=== PATIENT | male | born 1935 | race Caucasian/White ===

== ENCOUNTER 2022-04-03 09:38 | Inpatient (IN) | payer MEDICARE, OTHER ==
[2022-04-03] MEDS ORDERED: SODIUM CHLORIDE 0.9% 1,000 ML IV STA (09:59)
[2022-04-03] MEDS ORDERED: SODIUM CHLORIDE 0.9% 500 ML 500 ML IV STA (09:59)
[2022-04-03] MEDS ORDERED: DILTIAZEM DRIP BOLUS FROM BAG 1 MG SOLN IV ONE (09:59)
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
[2022-04-03] MEDS: DILTIAZEM 125 MG in SODIUM CHLORIDE 0.9% 100 ML IV SCH (10:12)
[2022-04-03 10:30] LABS: Basophils % (A) 1 %; Eosinophils % (A) 1 %; HCT 40.7 % (39.0-53.0); HGB 13.2 gm/dL (13.0-17.5); Lymphocytes # (A) 0.7 k/uL (1.0-4.8); Lymphocytes % (A) 9 %; MCH 30.8 pg (25.0-35.0); MCHC 32.4 g/dL (31.0-37.0); MCV 95.1 fL (80.0-100.0); Mean Platelet Volume 7.9; Monocytes # (A) 1.1 k/uL (0-1.0); Monocytes % (A) 13 %; Neutrophils # (A) 5.9 k/uL (1.3-7.7); Neutrophils % (A) 74 %; Platelet Count 192 k/uL (150-450); RBC 4.29 m/uL (4.30-5.90); RDW 14.2 % (11.5-15.5); WBC 7.9 k/uL (3.8-10.6)
[2022-04-03 10:38] LABS: ALT 16 U/L (4-49); AST 34 U/L (17-59); African American GFR (CKD) 47 (>60 ml/min/1.73 sqM); Albumin 3.7 g/dL (3.5-5.0); Alkaline Phosphatase 83 U/L (38-126); Anion Gap 10 mmol/L; Blood Urea Nitrogen 23 mg/dL (9-20); Calcium 8.4 mg/dL (8.4-10.2); Carbon Dioxide 24 mmol/L (22-30); Chloride 100 mmol/L (98-107); Creatine Kinase 738 U/L (55-170); Glucose 113 mg/dL (74-99); Lipase 99 U/L (23-300); Magnesium 1.7 mg/dL (1.6-2.3); Non-African American GFR(CKD) 41 (>60 ml/min/1.73 sqM); Potassium 3.9 mmol/L (3.5-5.1); Sodium 134 mmol/L (137-145); Total Protein 7.6 g/dL (6.3-8.2)
[2022-04-03 10:42] LABS: INR 1.3 (<1.2); Prothrombin Time 13.6 sec (9.0-12.0)
[2022-04-03 11:35] LABS: T4, Free (Free Thyroxine) 0.98 ng/dL (0.78-2.19)
--- NOTE | 2022-04-03 11:43 | XR ---
EXAMINATION TYPE: XR chest 2V DATE OF EXAM: 04/03/2022 11:29 AM COMPARISON: None TECHNIQUE: XR chest 2V Frontal and lateral views of the chest. CLINICAL INDICATION:Male, 86 years old with history of Fever and weakness; FINDINGS: Lungs/Pleura: Low lung volumes are present. There is no evidence of pleural effusion, focal consolida tion, or pneumothorax. Pulmonary vascularity: Unremarkable. Heart/mediastinum: Cardiomediastinal silhouette is enlarged and stable. Musculoskeletal: No acute osseous pathology. IMPRESSION: Low lung volumes with a generalized hazy appearance which could represent atelectasis, pneumonia or p ulmonary edema.
[2022-04-03 11:57] LABS: Appearance,Urine Clear (Clear); Bacteria,Urine Rare /hpf; Bilirubin,Urine Negative (Negative); Blood,Urine Moderate (Negative); Color,Urine Yellow; Glucose,Urine (UA) Negative (Negative); Hyaline Casts,Urine 3 /lpf (0-2); Ketones,Urine 1+ (Negative); Leukocyte Esterase,Urine Negative (Negative); Mucus,Urine Rare /hpf; Nitrite,Urine Negative (Negative); Protein,Urine 2+ (Negative); RBC,Urine 1 /hpf (0-5); Urobilinogen,Urine <2.0 mg/dL (<2.0); WBC,Urine 3 /hpf (0-5)
[2022-04-03] MEDS ORDERED: cefTRIAXone IN SWFI 1,000 MG/10 ML SYRINGE IVP STA (12:25)
[2022-04-03] MEDS ORDERED: IPRATROPIUM-ALBUTEROL 3 ML NEB INHALATION PRN (13:17)
[2022-04-03] MEDS ORDERED: PNEUMONIA PROTOCOL UTILIZED 1 EACH MISC PO PRN (13:17)
[2022-04-03] MEDS ORDERED: AZITHROMYCIN 500 MG in SODIUM CHLORIDE 0.9% 250 ML IVPB STA (13:17)
[2022-04-03] MEDS: RIVAROXABAN 20 MG TAB PO SCH (17:22)
[2022-04-03] MEDS: ACETAMINOPHEN TAB 325 MG TAB PO PRN (17:23)
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
[2022-04-04] MEDS: ACETAMINOPHEN TAB 325 MG TAB PO PRN (03:24)
[2022-04-04] MEDS: DILTIAZEM 125 MG in SODIUM CHLORIDE 0.9% 100 ML IV SCH (03:25)
[2022-04-04 08:32] LABS: HCT 38.5 % (39.0-53.0); HGB 12.9 gm/dL (13.0-17.5); MCH 32.6 pg (25.0-35.0); MCHC 33.4 g/dL (31.0-37.0); MCV 97.6 fL (80.0-100.0); Mean Platelet Volume 8.2; Platelet Count 173 k/uL (150-450); Poikilocytosis Slight; RBC 3.94 m/uL (4.30-5.90); RDW 14.7 % (11.5-15.5); WBC 6.3 k/uL (3.8-10.6)
[2022-04-04] MEDS ORDERED: TORSEMIDE 20 MG TAB PO SCH (09:00)
[2022-04-04] MEDS ORDERED: METOPROLOL SUCCINATE (ER) 25 MG TAB.ER.24H PO SCH (09:00)
[2022-04-04] MEDS: AZITHROMYCIN 500 MG TAB PO SCH (09:02)
[2022-04-04] MEDS: POTASSIUM CITRATE 10 MEQ TABLET.ER PO SCH (09:02)
[2022-04-04] MEDS: LOSARTAN 50 MG TAB PO SCH (09:03)
[2022-04-04] MEDS: METOPROLOL SUCCINATE (ER) 100 MG TAB.ER.24H PO SCH (09:08)
[2022-04-04 10:38] LABS: Eosinophils # (M) 0.13 k/uL (0-0.7); Lymphocytes # (M) 0.76 k/uL (1.0-4.8); Monocytes # (M) 0.95 k/uL (0-1.0); Neutrophils # (M) 4.47 k/uL (1.3-7.7); Neutrophils % (M) 71 %; Nucleated Red Blood Cells 0 /100 WBC (0-0); Total Cells Counted 100
--- NOTE | 2022-04-04 11:33 | P.CRDCN ---
History of Present Illness History of present illness: HISTORY OF PRESENT ILLNESS: This is a 86-year-old male with a past medical history significant for unspecified cardiomyopathy, permanent atrial fibrillation, hypertension, hyperlipidemia, and chronic lower extremity venous ulcers. Patient follows in the office with Dr. Varela. We have been asked to see the patient in consultation for Ron ronquillo with RVR. Patient examined at the bedside. Patient states he presented to the hospital with generalized weakness and feeling as though his balance was off. He reports falling at home but denies any syncopal episodes. The patient was found to be febrile upon admission. He denied any fever at home. He denies any cough. He denies shortness of breath. Denies chest pain or pressure. He denies any palpitations. Telemetry this morning reveals atrial fibrillation with a heart rate between 100-115. Patient is currently on a Cardizem drip at 5 mg an hour. * EKG reveals atrial fibrillation with RVR. Left axis deviation. * Chest xray low lung volumes with generalized hazy appearance which could represent atelectasis, pneumonia, or pulmonary edema * Laboratory data: WBC 6.3. Hemoglobin 12.9. Platelet count 173. Sodium 135. Potassium 4.0. B UN 28. Creatinine 1.81. ProBNP 2700. Troponin 0.031. * Current home cardiac medications include Demadex 20 mg daily, Xarelto 20 mg with supper, metoprolol succinate 75 mg daily, and losartan 100 mg daily * Most recent echocardiogram obtained in October 2021 reveal ejection fraction 35% with mild aortic regurgitation, mild mitral regurgitation, mild tricuspid regurgitation * Cardiac catheterization history: Unknown REVIEW OF SYSTEMS: At the time of my exam: CONSTITUTIONAL: Denies fever or chills. HEENT: Denies blurred vision, vision changes, or eye pain. Denies hemoptysis CARDIOVASCULAR: Denies chest pain. Denies orthopnea. Denies PND. Denies palpitations RESPIRATORY: Denies shortness of breath. GASTROINTESTINAL: Denies abdominal pain. Denies nausea or vomiting. HEMATOLOGIC: Denies bleeding disorders. GENITOURINARY: Denies any blood in urine. SKIN: Denies pruitis. Denies rash. PHYSICAL EXAM: VITAL SIGNS: Reviewed. GENERAL: Well-developed in no acute distress. HEENT: Head is normocephalic. Pupils are equal, round. Sclerae anicteric. Mucous membranes of the mouth are moist. Neck supple. No JVD or thyromegaly LUNGS: Respirations even and unlabored. Lungs diminished with a few bibasilar crackles. HEART: Tachycardic. Irregular rate and rhythm. S1 and S2 heard. ABDOMEN: Soft. Nondistended. Nontender. EXTREMITIES: Normal range of motion. No clubbing or cyanosis. Peripheral pulses intact. Bilateral lower extremity edema present with Osmany wraps. NEUROLOGIC: Awake and alert. Oriented x 3. ASSESSMENT: Generalized weakness with mechanical fall Fever Bilateral pneumonia Permanent atrial fibrillation with RVR, anticoagulated with Xarelto Cardiomyopathy, unspecified, ejection fraction 35% Chronic lower extremity venous ulcers COPD Acute kidney injury, baseline unknown PLAN: No need to repeat echocardiogram as patient had echocardiogram performed in the office in October 2021 revealing ejection fraction 35% Continue anticoagulation with Xarelto Continue additional cardiac medications Increase metoprolol succinate 100 mg daily for optimal blood pressure control Discontinue IV Cardizem secondary to cardiomyopathy Further recommendations pending patient's course Patient with worsening kidney function today compared to yesterday and concern of pneumonia. We will hold torsemide and monitor kidney function, volume status. Nurse practitioner note has been reviewed by physician. Signing provider agrees with the documented findings, assessment, and plan of care. Past Medical History Past Medical History: Atrial Fibrillation, Heart Failure, COPD, GERD/Reflux, Hypertension, Pneumonia, Vascular Disorder Additional Past Medical History / Comment(s): Recently seen by PCP on 04/02/22 for worsening cough, pt on antibiotic d/t tooth infection, venous insufficiency, bilateral leg lymphedema/wrapped spouse states past sores on bilateral feet but not at this time, History of Any Multi-Drug Resistant Organisms: None Reported Past Surgical History: Orthopedic Surgery Additional Past Surgical History / Comment(s): R elbow injury with surgery Past Anesthesia/Blood Transfusion Reactions: No Reported Reaction Past Psychological History: No Psychological Hx Reported Additional Psychological History / Comment(s): Pt resides with his spouse. He has a walker but does not use it. He is fairly independent. Smoking Status: Former smoker Past Alcohol Use History: Rare Additional Past Alcohol Use History / Comment(s): Pt started smoking in 4 and quit in 1981 Past Drug Use History: None Reported - Past Family History Father Family Medical History: Congestive Heart Failure (CHF) Additional Family Medical History / Comment(s): Father lived to be 88/89yrs old Mother Family Medical History: Cancer Additional Family Medical History / Comment(s): Leukemia Medications and Allergies Home Medications Medication Instructions Recorded Confirmed Type Amoxic-Pot Clav 875-125Mg 1 tab PO Q12HR 04/03/22 04/03/22 History [Augmentin 875-125] Ergocalciferol [Vitamin D2 (1250 1,250 mcg PO Q30D 04/03/22 04/03/22 History Mcg = 63148 Iu)] Losartan Potassium 100 mg PO DAILY 04/03/22 04/03/22 History Metoprolol Succinate (ER) [Toprol 75 mg PO DAILY 04/03/22 04/03/22 History Xl] Potassium Citrate [Potassium 10 meq PO DAILY 04/03/22 04/03/22 History Citrate ER] Rivaroxaban [Xarelto] 20 mg PO W/SUPPER 04/03/22 04/03/22 History Torsemide [Demadex] 20 mg PO DAILY 04/03/22 04/03/22 History Allergies Allergy/AdvReac Type Severity Reaction Status Date / Time No Known Allergies Allergy Verified 04/03/22 11:04 Physical Exam Vitals: Vital Signs Temp Pulse Pulse Resp BP BP Pulse Ox 04/04/22 08:00 98.3 F 104 H 20 134/84 96 04/04/22 05:17 98.8 F 04/04/22 04:00 99.7 F H 132 H 18 145/83 97 04/03/22 22:57 98.3 F 103 H 18 163/68 91 L 04/03/22 20:00 98.4 F 101 H 20 109/74 98 04/03/22 19:40 99 04/03/22 16:35 100.2 F H 117 H 20 174/98 93 L 04/03/22 15:54 117 H 20 96 04/03/22 15:39 102.8 F H 110 H 22 140/84 97 04/03/22 14:09 106 H 22 158/102 96 04/03/22 12:15 100.6 F H 102 H 18 177/87 97 Intake and Output 04/03/22 04/04/22 04/04/22 22:59 06:59 14:59 Intake Total 240 926.083 Output Total 550 Balance 240 376.083 Intake: Intake, IV Titration 686.083 Amount Diltiazem 125 mg In 86.083 Sodium Chloride 0.9% 100 ml @ 5 MG/HR 5 mls/hr IV .Q24H PRETE Rx#:[id number] Sodium Chloride 0.9% 1, 600 000 ml @ 50 mls/hr IV . Q20H STA Rx#:[id number] Oral 240 240 Output: Urine 550 Other: Voiding Method Urinal Urinal Results 04/04/22 07:14 04/04/22 07:14 CBC 04/04/22 Range/Units 07:14 WBC 6.3 (3.8-10.6) k/uL RBC 3.94 L (4.30-5.90) m/uL Hgb 12.9 L (13.0-17.5) gm/dL Hct 38.5 L (39.0-53.0) % Plt Count 173 (150-450) k/uL Comprehensive Metabolic Panel 04/04/22 Range/Units 07:14 Sodium 135 L (137-145) mmol/L Potassium 4.0 (3.5-5.1) mmol/L Chloride 104 (98-107) mmol/L Carbon Dioxide 23 (22-30) mmol/L BUN 28 H (9-20) mg/dL Creatinine 1.81 H (0.66-1.25) mg/dL Glucose 103 H (74-99) mg/dL Calcium 8.0 L (8.4-10.2) mg/dL Current Medications Generic Name Dose Route Start Last Admin Trade Name Freq PRN Reason Stop Dose Admin Acetaminophen 650 mg 04/03/22 16:25 04/04/22 03:24 Acetaminophen Tab 325 Mg Tab PO 650 mg Q6HR PRN Administration Fever and/ or Mild Pain Albuterol/Ipratropium 3 ml 04/03/22 13:17 Ipratropium-Albuterol 3 Ml Neb INHALATION RT-Q4H PRN shortness of breath Azithromycin 500 mg 04/04/22 09:00 04/04/22 09:02 Azithromycin 500 Mg Tab PO 04/05/22 09:01 500 mg DAILY PREET Administration Protocol Ergocalciferol 1,250 mcg 04/19/22 09:00 Ergocalciferol 1,250 Mcg (50,000 Iu) Capsule PO Q30D [facility] Diltiazem HCl 125 mg/ Sodium 125 mls @ 5 mls/hr 04/03/22 10:00 04/04/22 03:25 Chloride IV 5 mg/hr .Q24H PREET 5 mls/hr Administration 5 MG/HR Ceftriaxone Sodium 2 gm/ 50 mls @ 100 mls/hr 04/04/22 09:00 04/04/22 09:02 Sodium Chloride IVPB 04/07/22 09:29 100 mls/hr Q24HR PREET Administration Protocol Losartan Potassium 100 mg 04/04/22 09:00 04/04/22 09:03 Losartan 50 Mg Tab PO 100 mg DAILY PREET Administration Metoprolol Succinate 100 mg 04/04/22 09:00 04/04/22 09:08 Metoprolol Succinate (Er) 100 Mg Tab.Er.24h PO 100 mg DAILY PREET Administration Miscellaneous Information 1 each 04/03/22 13:17 Pneumonia Protocol Utilized 1 Each Misc PO ONCE PRN Per Protocol Potassium Citrate 10 meq 04/04/22 09:00 04/04/22 09:02 Potassium Citrate 10 Meq Tablet.Er PO 10 meq DAILY PREET Administration Rivaroxaban 20 mg 04/03/22 17:30 04/03/22 17:22 Rivaroxaban 20 Mg Tab PO 20 mg W/SUPPER PREET Administration Protocol Torsemide 20 mg 04/04/22 09:00 04/04/22 09:02 Torsemide 20 Mg Tab PO 20 mg DAILY PREET Administration Intake and Output 04/03/22 04/04/22 04/04/22 22:59 06:59 14:59 Intake Total 240 926.083 Output Total 550 Balance 240 376.083 Intake: Intake, IV Titration 686.083 Amount Diltiazem 125 mg In 86.083 Sodium Chloride 0.9% 100 ml @ 5 MG/HR 5 mls/hr IV .Q24H PREET Rx#:[id number] Sodium Chloride 0.9% 1, 600 000 ml @ 50 mls/hr IV . Q20H STA Rx#:[id number] Oral 240 240 Output: Urine 550 Other: Voiding Method Urinal Urinal 04/04/22 07:14 04/04/22 07:14
[2022-04-04] MEDS: RIVAROXABAN 20 MG TAB PO SCH (17:12)
[2022-04-05 08:16] LABS: Basophils % (A) 0 %; Eosinophils # (A) 0.1 k/uL (0-0.7); Eosinophils % (A) 1 %; HCT 39.2 % (39.0-53.0); HGB 12.4 gm/dL (13.0-17.5); Lymphocytes # (A) 0.9 k/uL (1.0-4.8); Lymphocytes % (A) 11 %; MCH 30.7 pg (25.0-35.0); MCHC 31.7 g/dL (31.0-37.0); MCV 96.8 fL (80.0-100.0); Mean Platelet Volume 8.7; Monocytes # (A) 0.9 k/uL (0-1.0); Monocytes % (A) 11 %; Neutrophils # (A) 5.7 k/uL (1.3-7.7); Neutrophils % (A) 74 %; Platelet Count 203 k/uL (150-450); RBC 4.06 m/uL (4.30-5.90); RDW 14.3 % (11.5-15.5); WBC 7.7 k/uL (3.8-10.6)
[2022-04-05 08:39] LABS: Potassium 4.1 mmol/L (3.5-5.1)
[2022-04-05] MEDS: METOPROLOL SUCCINATE (ER) 100 MG TAB.ER.24H PO SCH (09:20)
[2022-04-05] MEDS: LOSARTAN 50 MG TAB PO SCH (09:20)
[2022-04-05] MEDS: POTASSIUM CITRATE 10 MEQ TABLET.ER PO SCH (09:20)
[2022-04-05] MEDS: AZITHROMYCIN 500 MG TAB PO SCH (09:20)
--- NOTE | 2022-04-05 12:38 | P.PN ---
Subjective Progress Note Date: 04/05/22 HISTORY OF PRESENT ILLNESS: This is a 86-year-old male with a past medical history significant for unspecified cardiomyopathy, permanent atrial fibrillation, hypertension, hyperlipidemia, and chronic lower extremity venous ulcers. Patient follows in the office with Dr. Varela. We have been asked to see the patient in consultation for Ron ronquillo with RVR. Patient examined at the bedside. Patient states he presented to the hospital with generalized weakness and feeling as though his b alance was off. He reports falling at home but denies any syncopal episodes. The patient was found to be febrile upon admission. He denied any fever at home. He denies any cough. He denies shortness of breath. Denies chest pain or pressure. He denies any palpitations. Telemetry this morning reveals atrial fibrillation with a heart rate between 100-115. Patient is currently on a Cardizem drip at 5 mg an hour. * EKG reveals atrial fibrillation with RVR. Left axis deviation. * Chest xray low lung volumes with generalized hazy appearance which could represent atelectasis, pneumonia, or pulmonary edema * Laboratory data: WBC 6.3. Hemoglobin 12.9. Platelet count 173. Sodium 135. Potassium 4.0. B UN 28. Creatinine 1.81. ProBNP 2700. Troponin 0.031. * Current home cardiac medications include Demadex 20 mg daily, Xarelto 20 mg with supper, metoprolol succinate 75 mg daily, and losartan 100 mg daily * Most recent echocardiogram obtained in October 2021 reveal ejection fraction 35% with mild aortic regurgitation, mild mitral regurgitation, mild tricuspid regurgitation * Cardiac catheterization history: Unknown Patient examined this morning. Patient is sitting up in the chair. Patient denies chest pain or pressure. Currently denies shortness of breath. Telemetry reveals atrial fibrillation with a heart rate around 100-115. Patient's metoprolol succinate was increased yesterday to 100 mg daily. Patient's creatinine today is better at 1.51. BUN 30. Blood pressure 127/82. PHYSICAL EXAM: VITAL SIGNS: Reviewed. GENERAL: Well-developed in no acute distress. HEENT: Head is normocephalic. Pupils are equal, round. Sclerae anicteric. Mucous membranes of the mouth are moist. Neck supple. No JVD or thyromegaly LUNGS: Respirations even and unlabored. Lungs diminished with a few bibasilar crackles. HEART: Tachycardic. Irregular rate and rhythm. S1 and S2 heard. ABDOMEN: Soft. Nondistended. Nontender. EXTREMITIES: Normal range of motion. No clubbing or cyanosis. Peripheral pulses intact. Bilateral lower extremity edema present with Osmany wraps. NEUROLOGIC: Awake and alert. Oriented x 3. ASSESSMENT: Generalized weakness with mechanical fall Fever Bilateral pneumonia Permanent atrial fibrillation with RVR, anticoagulated with Xarelto Cardiomyopathy, unspecified, ejection fraction 35% Chronic lower extremity venous ulcers COPD Acute kidney injury, baseline unknown PLAN: Continue current cardiac medications Continue current dose of metoprolol. Continue telemetry monitoring. Anticipate heart rates will improve with resolution of pneumonia Continue to monitor kidney function. Torsemide on hold. Further recommendations pending patient course Nurse practitioner note has been reviewed by physician. Signing provider agrees with the documented findings, assessment, and plan of care. Objective - Vital Signs Vital signs: Vital Signs Temp 98.6 F 04/05/22 11:45 Pulse 81 04/05/22 11:45 Resp 21 04/05/22 11:45 BP 127/82 04/05/22 11:45 Pulse Ox 95 04/05/22 11:45 FiO2 Intake & Output 04/04/22 04/05/22 04/05/22 18:59 06:59 18:59 Intake Total 240 Output Total 200 500 100 Balance -200 -260 -100 Intake: Oral 240 Output: Urine 200 500 100 Other: Voiding Method Urinal Urinal - Labs CBC & Chem 7: 04/05/22 07:26 04/05/22 07:26 Labs: Abnormal Lab Results - Last 24 Hours (Table) 04/05/22 04/05/22 Range/Units 07:26 07:26 RBC 4.06 L (4.30-5.90) m/uL Hgb 12.4 L (13.0-17.5) gm/dL Lymphocytes # 0.9 L (1.0-4.8) k/uL BUN 30 H (9-20) mg/dL Creatinine 1.51 H (0.66-1.25) mg/dL Glucose 117 H (74-99) mg/dL Calcium 8.0 L (8.4-10.2) mg/dL Microbiology - Last 24 Hours (Table) 04/03/22 10:15 Blood Culture - Preliminary Blood No Growth after 48 hours 04/03/22 10:00 Blood Culture Gram Stain - Preliminary Blood 04/03/22 10:00 Blood Culture - Final Blood
[2022-04-05] MEDS: RIVAROXABAN 20 MG TAB PO SCH (16:25)
[2022-04-06] MEDS: POTASSIUM CITRATE 10 MEQ TABLET.ER PO SCH (09:37)
[2022-04-06] MEDS: ACETAMINOPHEN TAB 325 MG TAB PO PRN (09:37)
[2022-04-06] MEDS: METOPROLOL SUCCINATE (ER) 100 MG TAB.ER.24H PO SCH (09:39)
[2022-04-06] MEDS: LOSARTAN 50 MG TAB PO SCH (09:39)
[2022-04-06] MEDS ORDERED: DIGOXIN 250 MCG/ML 2 ML AMP IVP STA (11:39)
--- NOTE | 2022-04-06 11:39 | P.PN ---
Subjective HISTORY OF PRESENT ILLNESS: This is a 86-year-old male with a past medical history significant for unspecified cardiomyopathy, permanent atrial fibrillation, hypertension, hyperlipidemia, and chronic lower extremity venous ulcers. Patient follows in the office with Dr. Varela. We have been asked to see the patient in consultation for Ron ronquillo with RVR. Patient examined at the bedside. Patient states he presented to the hospital with generalized weakness and feeling as though his balance was off. He reports falling at home but denies any syncopal episodes. The patient was found to be febrile upon admission. He denied any fever at home. He denies any cough. He denies shortness of breath. Denies chest pain or pressure. He denies any palpitations. Telemetry this morning reveals atrial fibrillation with a heart rate between 100-115. Patient is currently on a Cardizem drip at 5 mg an hour. * EKG reveals atrial fibrillation with RVR. Left axis deviation. * Chest xray low lung volumes with generalized hazy appearance which could re present atelectasis, pneumonia, or pulmonary edema * Laboratory data: WBC 6.3. Hemoglobin 12.9. Platelet count 173. Sodium 135. Potassium 4.0. B UN 28. Creatinine 1.81. ProBNP 2700. Troponin 0.031. * Current home cardiac medications include Demadex 20 mg daily, Xarelto 20 mg with supper, metoprolol succinate 75 mg daily, and losartan 100 mg daily * Most recent echocardiogram obtained in October 2021 reveal ejection fraction 35% with mild aortic regurgitation, mild mitral regurgitation, mild tricuspid regurgitation * Cardiac catheterization history: Unknown Patient examined this morning. Patient is sitting up in the chair. Patient denies chest pain or pressure. Currently denies shortness of breath. Telemetry reveals atrial fibrillation with a heart rate around 100-115. Patient's metoprolol succinate was increased yesterday to 100 mg daily. Patient's creatinine today is better at 1.51. BUN 30. Blood pressure 127/82. 04/06 Patient seen and examined. Patient admits to feeling somewhat better however continued shortness breath. Creatinine mildly improved from 1.8 down to 1.5. Torsemide has been on hold. He has chronic lower extremity edema. Heart rates fairly consistently in the 110s and 120s. PHYSICAL EXAM: VITAL SIGNS: Reviewed. GENERAL: Well-developed in no acute distress. HEENT: Head is normocephalic. Pupils are equal, round. Sclerae anicteric. Mucous membranes of the mouth are moist. Neck supple. No JVD or thyromegaly LUNGS: Respirations even and unlabored. Lungs diminished with a few bibasilar crackles. HEART: Tachycardic. Irregular rate and rhythm. S1 and S2 heard. ABDOMEN: Soft. Nondistended. Nontender. EXTREMITIES: Normal range of motion. No clubbing or cyanosis. Peripheral pulses intact. Bilateral lower extremity edema present with Osmany wraps. NEUROLOGIC: Awake and alert. Oriented x 3. ASSESSMENT: Generalized weakness with mechanical fall Fever Bilateral pneumonia Permanent atrial fibrillation with RVR, anticoagulated with Xarelto Cardiomyopathy, unspecified, ejection fraction 35% Chronic lower extremity venous ulcers COPD Acute kidney injury, baseline unknown PLAN: Continue current cardiac medications Continue current dose of metoprolol. Continue telemetry monitoring. Heart rates likely exacerbated by pneumonia. Add digoxin however lower dose given kidney failure. Continue to monitor kidney function. Torsemide on hold. Further recommendations pending patient course Objective - Vital Signs Vital signs: Vital Signs Temp 98.1 F 04/06/22 11:25 Pulse 105 H 04/06/22 11:25 Resp 20 04/06/22 11:25 BP 109/67 04/06/22 11:25 Pulse Ox 94 L 04/06/22 11:25 FiO2 Intake & Output 04/05/22 04/06/22 04/06/22 18:59 06:59 18:59 Intake Total 680 180 Output Total 100 Balance -100 680 180 Intake: Oral 680 180 Output: Urine 100 Other: Voiding Method Urinal Urinal # Voids 1 1 # Bowel Movements 1 1 - Labs CBC & Chem 7: 04/05/22 07:26 04/05/22 07:26 Labs: Microbiology - Last 24 Hours (Table) 04/03/22 10:00 Blood Culture Gram Stain - Preliminary Blood 04/03/22 10:15 Blood Culture - Preliminary Blood No Growth after 48 hours 04/03/22 10:00 Blood Culture - Final Blood
[2022-04-06] MEDS ORDERED: DIGOXIN 250 MCG/ML 2 ML AMP ONE (12:23)
--- NOTE | 2022-04-06 15:33 | XR ---
EXAMINATION TYPE: XR chest 1V portable DATE OF EXAM: 04/06/2022 HISTORY: Shortness of breath. COMPARISON: 04/03/2022 TECHNIQUE: Single view of the chest is submitted. FINDINGS: Demonstrated are scattered senescent parenchymal change. There is no evidence for focal infiltrate. The heart is stable. Hilar and mediastinal structures are within normal limits. Degenerative changes are seen of the dorsal spine. IMPRESSION: 1. Chronic changes without evidence for acute pulmonary disease.
[2022-04-06] MEDS: RIVAROXABAN 20 MG TAB PO SCH (16:37)
[2022-04-07 07:35] LABS: Basophils % (A) 0 %; Eosinophils % (A) 0 %; HCT 40.7 % (39.0-53.0); HGB 12.9 gm/dL (13.0-17.5); Hypochromasia Slight; Lymphocytes # (A) 0.6 k/uL (1.0-4.8); Lymphocytes % (A) 5 %; MCHC 31.8 g/dL (31.0-37.0); MCV 97.5 fL (80.0-100.0); Mean Platelet Volume 8.9; Monocytes # (A) 0.9 k/uL (0-1.0); Monocytes % (A) 7 %; Neutrophils % (A) 86 %; Platelet Count 169 k/uL (150-450); RBC 4.17 m/uL (4.30-5.90); RDW 14.1 % (11.5-15.5); WBC 11.7 k/uL (3.8-10.6)
[2022-04-07 07:47] LABS: Calcium 8.2 mg/dL (8.4-10.2); Potassium 4.2 mmol/L (3.5-5.1)
[2022-04-07] MEDS: DIGOXIN 125 MCG TAB PO SCH (09:09)
[2022-04-07] MEDS: LOSARTAN 50 MG TAB PO SCH (09:09)
[2022-04-07] MEDS: METOPROLOL SUCCINATE (ER) 100 MG TAB.ER.24H PO SCH (09:09)
[2022-04-07] MEDS: POTASSIUM CITRATE 10 MEQ TABLET.ER PO SCH (09:09)
[2022-04-07] MEDS: ACETAMINOPHEN TAB 325 MG TAB PO PRN (12:11)
[2022-04-07] MEDS: SODIUM CHLORIDE 0.9% 250 ML IV SCH ×2 (16:37→17:26)
[2022-04-07] MEDS: TAMSULOSIN 0.4 MG CAP.ER.24H PO SCH (16:39)
[2022-04-07] MEDS: RIVAROXABAN 20 MG TAB PO SCH (16:39)
--- NOTE | 2022-04-07 17:32 | P.PN ---
Subjective HISTORY OF PRESENT ILLNESS: This is a 86-year-old male with a past medical history significant for unspecified cardiomyopathy, permanent atrial fibrillation, hypertension, hyperlipidemia, and chronic lower extremity venous ulcers. Patient follows in the office with Dr. Varela. We have been asked to see the patient in consultation for Ron ronquillo with RVR. Patient examined at the bedside. Patient states he presented to the hospital with generalized weakness and feeling as though his balance was off. He reports falling at home but denies any syncopal episodes. The patient was found to be febrile upon admission. He denied any fever at home. He denies any cough. He denies shortness of breath. Denies chest pain or pressure. He denies any palpitations. Telemetry this morning reveals atrial fibrillation with a heart rate between 100-115. Patient is currently on a Cardizem drip at 5 mg an hour. * EKG reveals atrial fibrillation with RVR. Left axis deviation. * Chest xray low lung volumes with generalized hazy appearance which could re present atelectasis, pneumonia, or pulmonary edema * Laboratory data: WBC 6.3. Hemoglobin 12.9. Platelet count 173. Sodium 135. Potassium 4.0. B UN 28. Creatinine 1.81. ProBNP 2700. Troponin 0.031. * Current home cardiac medications include Demadex 20 mg daily, Xarelto 20 mg with supper, metoprolol succinate 75 mg daily, and losartan 100 mg daily * Most recent echocardiogram obtained in October 2021 reveal ejection fraction 35% with mild aortic regurgitation, mild mitral regurgitation, mild tricuspid regurgitation * Cardiac catheterization history: Unknown Patient examined this morning. Patient is sitting up in the chair. Patient denies chest pain or pressure. Currently denies shortness of breath. Telemetry reveals atrial fibrillation with a heart rate around 100-115. Patient's metoprolol succinate was increased yesterday to 100 mg daily. Patient's creatinine today is better at 1.51. BUN 30. Blood pressure 127/82. 04/06 Patient seen and examined. Patient admits to feeling somewhat better however continued shortness breath. Creatinine mildly improved from 1.8 down to 1.5. Torsemide has been on hold. He has chronic lower extremity edema. Heart rates fairly consistently in the 110s and 120s. 04/07 Patient seen and examined. Patient underwent chest x-ray yesterday which showed no significant pulmonary process. He has had acute kidney injury and therefore diuretics have been discontinued. Digoxin was added with heart rates better controlled in the s. PHYSICAL EXAM: VITAL SIGNS: Reviewed. GENERAL: Well-developed in no acute distress. HEENT: Head is normocephalic. Pupils are equal, round. Sclerae anicteric. Mucous membranes of the mouth are moist. Neck supple. No JVD or thyromegaly LUNGS: Respirations even and unlabored. Lungs diminished with a few bibasilar crackles. HEART: Tachycardic. Irregular rate and rhythm. S1 and S2 heard. ABDOMEN: Soft. Nondistended. Nontender. EXTREMITIES: Normal range of motion. No clubbing or cyanosis. Peripheral pulses intact. Bilateral lower extremity edema present with Osmany wraps. NEUROLOGIC: Awake and alert. Oriented x 3. ASSESSMENT: Generalized weakness with mechanical fall Fever Bilateral pneumonia Permanent atrial fibrillation somewhat better controlled, anticoagulated with Xarelto Cardiomyopathy, unspecified, ejection fraction 35% Chronic lower extremity venous ulcers COPD Acute kidney injury, baseline unknown PLAN: Heart rates currently somewhat better controlled on digoxin. Continue to hold torsemide. Per nursing patient has had some urinary retention and may be the cause of increasing creatinine. Monitor creatinine and urine output. Continue supportive care. Further recommendations pending patient course Objective - Vital Signs Vital signs: Vital Signs Temp 98.2 F 04/07/22 16:00 Pulse 90 04/07/22 16:00 Resp 19 04/07/22 16:00 BP 111/68 04/07/22 16:00 Pulse Ox 94 L 04/07/22 16:00 FiO2 Intake & Output 04/06/22 04/07/22 04/07/22 18:59 06:59 18:59 Intake Total 478 Output Total 1200 Balance 478 -1200 Weight 117.934 kg Intake: Oral 478 Output: Urine 1200 Straight 1200 Other: Voiding Method Urinal Urinal Urinal # Voids 1 0 # Bowel Movements 1 - Labs CBC & Chem 7: 04/07/22 06:59 04/07/22 06:59 Labs: Abnormal Lab Results - Last 24 Hours (Table) 04/07/22 04/07/22 Range/Units 06:59 06:59 WBC 11.7 H (3.8-10.6) k/uL RBC 4.17 L (4.30-5.90) m/uL Hgb 12.9 L (13.0-17.5) gm/dL Neutrophils # 10.0 H (1.3-7.7) k/uL Lymphocytes # 0.6 L (1.0-4.8) k/uL BUN 46 H (9-20) mg/dL Creatinine 2.43 H (0.66-1.25) mg/dL Glucose 128 H (74-99) mg/dL Calcium 8.2 L (8.4-10.2) mg/dL Microbiology - Last 24 Hours (Table) 04/03/22 10:15 Blood Culture - Preliminary Blood No Growth after 96 hours
[2022-04-07] MEDS ORDERED: METOCLOPRAMIDE 5 MG TAB PO PRN (19:56)
[2022-04-08] MEDS: ACETAMINOPHEN TAB 325 MG TAB PO PRN ×2 (06:20→17:13)
[2022-04-08 08:32] LABS: Basophils % (A) 0 %; Eosinophils # (A) 0.1 k/uL (0-0.7); Eosinophils % (A) 2 %; HGB 12.2 gm/dL (13.0-17.5); Hypochromasia Slight; Lymphocytes # (A) 0.5 k/uL (1.0-4.8); Lymphocytes % (A) 6 %; MCH 30.7 pg (25.0-35.0); MCHC 31.2 g/dL (31.0-37.0); MCV 98.4 fL (80.0-100.0); Mean Platelet Volume 9.4; Monocytes # (A) 0.6 k/uL (0-1.0); Monocytes % (A) 7 %; Neutrophils # (A) 7.2 k/uL (1.3-7.7); Neutrophils % (A) 84 %; Platelet Count 182 k/uL (150-450); RBC 3.96 m/uL (4.30-5.90); RDW 14.2 % (11.5-15.5); WBC 8.5 k/uL (3.8-10.6)
[2022-04-08 08:40] LABS: Calcium 8.1 mg/dL (8.4-10.2); Potassium 3.9 mmol/L (3.5-5.1)
[2022-04-08] MEDS: SODIUM CHLORIDE 0.9% 250 ML IV SCH ×9 (09:14→21:43)
[2022-04-08] MEDS: DIGOXIN 125 MCG TAB PO SCH (09:17)
[2022-04-08] MEDS: POTASSIUM CITRATE 10 MEQ TABLET.ER PO SCH (09:17)
[2022-04-08] MEDS: METOPROLOL SUCCINATE (ER) 100 MG TAB.ER.24H PO SCH (09:17)
[2022-04-08] MEDS: TAMSULOSIN 0.4 MG CAP.ER.24H PO SCH (09:17)
[2022-04-08] MEDS: LOSARTAN 50 MG TAB PO SCH (09:17)
--- NOTE | 2022-04-08 10:21 | P.NPCON ---
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 He is known with hypertension at age 28, bilateral nephrolithiasis, chronic atrial fibrillation and cardiomyopathy ejection fraction 35% also known with chronic edema. Came in because of generalized weakness. Recently supposedly had visited his [facility] physician and was put on Augmentin. He came in with a temperature of 100.3 on arrival. Additionally he was on losartan and torsemide at home. No history of nausea vomiting no history of taking any nonsteroidals. No diarrhea. No dysuria frequency no pain suggestive of kidney stones In the hospital, on admission creatinine was 1.55, went up to 2.43 as of yesterday and is down to 2.1 on this morning he is given IV fluids yesterday. Past Medical History Past Medical History: Atrial Fibrillation, Heart Failure, COPD, GERD/Reflux, Hypertension, Pneumonia, Vascular Disorder Additional Past Medical History / Comment(s): Recently seen by PCP on 04/02/22 for worsening cough, pt on antibiotic d/t tooth infection, venous insufficiency, bilateral leg lymphedema/wrapped spouse states past sores on bilateral feet but not at this time, History of Any Multi-Drug Resistant Organisms: None Reported Past Surgical History: Orthopedic Surgery Additional Past Surgical History / Comment(s): R elbow injury with surgery Past Anesthesia/Blood Transfusion Reactions: No Reported Reaction Past Psychological History: No Psychological Hx Reported Additional Psychological History / Comment(s): Pt resides with his spouse. He has a walker but does not use it. He is fairly independent. Smoking Status: Former smoker Past Alcohol Use History: Rare Additional Past Alcohol Use History / Comment(s): Pt started smoking in 1952 and quit in 1981 Past Drug Use History: None Reported - Past Family History Father Family Medical History: Congestive Heart Failure (CHF) Additional Family Medical History / Comment(s): Father lived to be 88/89yrs old Mother Family Medical History: Cancer Additional Family Medical History / Comment(s): Leukemia Medications and Allergies Home Medications Medication Instructions Recorded Confirmed Type Amoxic-Pot Clav 875-125Mg 1 tab PO Q12HR 04/03/22 04/03/22 History [Augmentin 875-125] Ergocalciferol [Vitamin D2 (1250 1,250 mcg PO Q30D 04/03/22 04/03/22 History Mcg = 61560 Iu)] Losartan Potassium 100 mg PO DAILY 04/03/22 04/03/22 History Metoprolol Succinate (ER) [Toprol 75 mg PO DAILY 04/03/22 04/03/22 History Xl] Potassium Citrate [Potassium 10 meq PO DAILY 04/03/22 04/03/22 History Citrate ER] Rivaroxaban [Xarelto] 20 mg PO W/SUPPER 04/03/22 04/03/22 History Torsemide [Demadex] 20 mg PO DAILY 04/03/22 04/03/22 History Allergies Allergy/AdvReac Type Severity Reaction Status Date / Time No Known Allergies Allergy Verified 04/03/22 11:04 Physical Exam Vitals: Vital Signs Temp Pulse Resp BP Pulse Ox 04/08/22 08:00 92 19 04/08/22 07:55 98.1 F 92 19 100/64 96 04/08/22 03:56 98.5 F 89 18 97/64 98 04/08/22 02:00 76 20 04/08/22 00:00 98.9 F 76 20 111/70 96 04/07/22 20:00 97.9 F 70 18 105/66 96 04/07/22 16:00 98.2 F 90 19 111/68 94 L 04/07/22 14:00 74 19 04/07/22 12:00 98.6 F 74 19 112/72 95 Intake and Output 04/07/22 04/08/22 04/08/22 22:59 06:59 14:59 Intake Total 180 180 Output Total 1640 Balance 180 -1640 180 Intake: Oral 180 180 Output: Urine 1640 Straight 800 Other: Voiding Method Urinal Indwelling Catheter Indwelling Catheter # Voids 0 Weight 117.934 kg 95.5 kg Exams awake alert oriented HEENT exam no JVP neck is supple no facial asymmetry. Lungs are significant for bilateral occasional coarse crackles with less than optimal air entry bilaterally heart sounds unremarkable except for irregular no murmur rub gallop heard Abdomen soft nontender Extremity exam was moderate edema Neurologically awake alert oriented, generalized weakness Results - Lab Results Most recent lab results Calcium 8.1 mg/dL (8.4-10.2) L 04/08/22 07:42 Magnesium 1.7 mg/dL (1.6-2.3) 04/03/22 10:04 04/08/22 07:42 04/08/22 07:42 Assessment and Plan Assessment: Impression 1. Acute kidney injury secondary to likely volume depletion and prerenal state from diuretics improved creatinine with IV fluids given yesterday 2. Chronic kidney disease stage III nephrosclerosis Baseline creatinine 1.3 approximately December 2021. 1-2+ proteinuria noted on urinalysis. 3. History of COPD 4. History of cardiomyopathy, ejection fraction was 35% per cardiology, etiology unclear 5. History of nephrolithiasis. Recommendation 1. As creatinine is improving we will allow him to be gently hydrated orally. 2. Check urine protein to creatinine ratio. 3. Patient has a Lynn catheter therefore is no evidence of any outlet obstruction. Previously his ultrasound showed normal-sized kidneys in the office. 4. Check orthostatic changes and if it is positive we will give him gentle hydration intravenously. 5. Hold diuretics for right now 6. Monitor labs tomorrow per his schedule this consultation and will continue to follow closely
--- NOTE | 2022-04-08 14:00 | P.PN ---
Subjective HISTORY OF PRESENT ILLNESS: This is a 86-year-old male with a past medical history significant for unspecified cardiomyopathy, permanent atrial fibrillation, hypertension, hyperlipidemia, and chronic lower extremity venous ulcers. Patient follows in the office with Dr. Varela. We have been asked to see the patient in consultation for Ron ronquillo with RVR. Patient examined at the bedside. Patient states he presented to the hospital with generalized weakness and feeling as though his balance was off. He reports falling at home but denies any syncopal episodes. The patient was found to be febrile upon admission. He denied any fever at home. He denies any cough. He denies shortness of breath. Denies chest pain or pressure. He denies any palpitations. Telemetry this morning reveals atrial fibrillation with a heart rate between 100-115. Patient is currently on a Cardizem drip at 5 mg an hour. * EKG reveals atrial fibrillation with RVR. Left axis deviation. * Chest xray low lung volumes with generalized hazy appearance which could re present atelectasis, pneumonia, or pulmonary edema * Laboratory data: WBC 6.3. Hemoglobin 12.9. Platelet count 173. Sodium 135. Potassium 4.0. B UN 28. Creatinine 1.81. ProBNP 2700. Troponin 0.031. * Current home cardiac medications include Demadex 20 mg daily, Xarelto 20 mg with supper, metoprolol succinate 75 mg daily, and losartan 100 mg daily * Most recent echocardiogram obtained in October 2021 reveal ejection fraction 35% with mild aortic regurgitation, mild mitral regurgitation, mild tricuspid regurgitation * Cardiac catheterization history: Unknown Patient examined this morning. Patient is sitting up in the chair. Patient denies chest pain or pressure. Currently denies shortness of breath. Telemetry reveals atrial fibrillation with a heart rate around 100-115. Patient's metoprolol succinate was increased yesterday to 100 mg daily. Patient's creatinine today is better at 1.51. BUN 30. Blood pressure 127/82. 04/06 Patient seen and examined. Patient admits to feeling somewhat better however continued shortness breath. Creatinine mildly improved from 1.8 down to 1.5. Torsemide has been on hold. He has chronic lower extremity edema. Heart rates fairly consistently in the 110s and 120s. 04/07 Patient seen and examined. Patient underwent chest x-ray yesterday which showed no significant pulmonary process. He has had acute kidney injury and therefore diuretics have been discontinued. Digoxin was added with heart rates better controlled in the . 04/08 Patient seen and examined. Having hiccups today. Denies any chest pain or pressure. Still mild dyspnea. Still very weak and being assessed for possible rehab. Creatinine mildly improving to 2.1 today. Seen by nephrology and diuretics have been held with gentle IV fluids given yesterday. PHYSICAL EXAM: VITAL SIGNS: Reviewed. GENERAL: Well-developed in no acute distress. HEENT: Head is normocephalic. Pupils are equal, round. Sclerae anicteric. Mucous membranes of the mouth are moist. Neck supple. No JVD or thyromegaly LUNGS: Respirations even and unlabored. Lungs diminished with a few bibasilar crackles. HEART: Tachycardic. Irregular rate and rhythm. S1 and S2 heard. ABDOMEN: Soft. Nondistended. Nontender. EXTREMITIES: Normal range of motion. No clubbing or cyanosis. Peripheral pulses intact. Bilateral lower extremity edema present with Osmany wraps. NEUROLOGIC: Awake and alert. Oriented x 3. ASSESSMENT: Generalized weakness with mechanical fall Fever Bilateral pneumonia Permanent atrial fibrillation somewhat better controlled, anticoagulated with Xarelto Cardiomyopathy, unspecified, ejection fraction 35% Chronic lower extremity venous ulcers COPD Acute kidney injury, baseline unknown PLAN: Continue with digoxin for better rate control Continue to hold diuretics and monitor knee function. Creatinine mildly improved with IV fluids yesterday. May be component of urinary retention for acute kidney injury. Patient very debilitated and undergoing workup for rehab. Continue supportive care with very slow progression. Objective - Vital Signs Vital signs: Vital Signs Temp 98.1 F 04/08/22 12:00 Pulse 77 04/08/22 12:00 Resp 19 04/08/22 12:00 BP 106/57 04/08/22 12:00 Pulse Ox 98 04/08/22 12:00 FiO2 Intake & Output 04/07/22 04/08/22 04/08/22 18:59 06:59 18:59 Intake Total 420 180 Output Total 1640 Balance 420 -1640 180 Weight 117.934 kg 95.5 kg Intake: Oral 420 180 Output: Urine 1640 Straight 800 Other: Voiding Method Urinal Indwelling Catheter Indwelling Catheter # Voids 0 - Labs CBC & Chem 7: 04/08/22 07:42 04/08/22 07:42 Labs: Abnormal Lab Results - Last 24 Hours (Table) 04/08/22 04/08/22 Range/Units 07:42 07:42 RBC 3.96 L (4.30-5.90) m/uL Hgb 12.2 L (13.0-17.5) gm/dL Lymphocytes # 0.5 L (1.0-4.8) k/uL BUN 54 H (9-20) mg/dL Creatinine 2.11 H (0.66-1.25) mg/dL Glucose 124 H (74-99) mg/dL Calcium 8.1 L (8.4-10.2) mg/dL Microbiology - Last 24 Hours (Table) 04/03/22 10:15 Blood Culture - Preliminary Blood No Growth after 120 hours
[2022-04-08 16:36] LABS: Glucose,Whole Blood 130 mg/dL (70-110)
[2022-04-08] MEDS: RIVAROXABAN 20 MG TAB PO SCH (17:13)
[2022-04-08 17:22] LABS: Creatinine,Urine Random 212.3 mg/dL; Protein/Creatinine Ratio,Urine 0.151
[2022-04-08] MEDS ORDERED: HYDROcodone/APAP 5-325MG 1 EACH TAB PO PRN (18:56)
--- NOTE | 2022-04-09 00:54 | P.PN ---
Subjective Progress Note Date: 04/04/22 Patient is a 86-year-old male with a known history of paroxysmal atrial fibrillation on anticoagulation with xarelto, COPD, GERD, hypertension and previous history of smoking and also chronic lymphedema of the legs bilaterally presents to ER with complaints of generalized weakness. Patient is also having shortness of breath getting worse for the past 2 days. No complaints of chest pain. Patient was hypoxic with pulse ox 88% on room air on admission. Patient was also febrile and tachycardic on admission. T-max went up to 102.8. Denied any nausea or vomiting. No diarrhea. No headache or dizziness or lightheadedness. Patient also having worsening leg swelling. Chest x-ray showed low lung volumes and generalized hazy appearance which could represent atelectasis., Pneumonia or pulmonary edema. EKG showed atrial fibrillation with rapid ventricular rate Laboratory data showed WBC 7.9 hemoglobin 13.2 and platelets 192 INR 1.3, sodium 134 potassium 3.9, chloride 100 BUN 23 and creatinine 1.55 CKs 738. Liver is not elevated. ProBNP 2700 troponin 1 negative., TSH 0.16 and free T4 within normal limits at 0.98 Urinalysis showed 2+ protein 1+ ketones and moderate blood. Cordarone was pre sent not infected. 04/04/2022 Patient is currently lying in bed. Awake alert and oriented and feeling better today. Patient was febrile overnight. Continued on IV antibiotics. Heart rate is better controlled and also on Cardizem drip. Cardiology is on board. Continue with torsemide. Leg swelling is still present and denied any nausea vomiting abdominal pain or diarrhea. Laboratory test showed WBC 6.3 hemoglobin 12.9 and platelets 173 Sodium 134 potassium 4.0 chloride 104 bicarb is 23 BUN 28 and creatinine 1.81 and calcium 8.0 Current medications reviewed. Objective - Vital Signs Vital signs: Vital Signs Temp 98.9 F 04/04/22 20:00 Pulse 104 H 04/04/22 20:00 Resp 18 04/04/22 20:00 BP 161/81 04/04/22 20:00 Pulse Ox 93 L 04/04/22 20:00 FiO2 Intake & Output 04/04/22 04/04/22 04/05/22 06:59 18:59 06:59 Intake Total 1166.083 240 Output Total 550 200 175 Balance 616.083 -200 65 Intake: Intake, IV Titration 686.083 Amount Diltiazem 125 mg In 86.083 Sodium Chloride 0.9% 100 ml @ 5 MG/HR 5 mls/hr IV .Q24H PREET Rx#:[id number] Sodium Chloride 0.9% 1, 600 000 ml @ 50 mls/hr IV . Q20H STA Rx#:[id number] Oral 480 240 Output: Urine 550 200 175 Other: Voiding Method Urinal - Exam PHYSICAL EXAMINATION: Patient is lying in the bed comfortably, no acute distress, awake alert and oriented. But weak.. HEENT: Normocephalic. Neck is supple. Pupils reactive. Nostrils clear. Oral cavity is moist. Neck reveals no JVD, carotid bruits, or thyromegaly. CHEST EXAMINATION: Trachea is central. Symmetrical expansion. Bibasilar diminished sounds and no wheeze. CARDIAC: Normal S1, S2 with no gallops. No murmurs ABDOMEN: Soft. Bowel sounds normal. No organomegaly. No abdominal bruits. Extremities: 2+ bilateral pedal edema. No clubbing or cyanosis Neurologically awake, alert, oriented x3 with well-coordinated movements. No brothers focal deficits noted Skin: No rash or skin lesions. Psychiatric: Coperative. Nonsuicidal Musculoskeletal: No joint swelling or deformity. Normal range of motion while in bed.. - Labs CBC & Chem 7: 04/08/22 07:42 04/08/22 07:42 Labs: Abnormal Lab Results - Last 24 Hours (Table) 04/04/22 04/04/22 Range/Units 07:14 07:14 RBC 3.94 L (4.30-5.90) m/uL Hgb 12.9 L (13.0-17.5) gm/dL Hct 38.5 L (39.0-53.0) % Lymphocytes # (Manual) 0.76 L (1.0-4.8) k/uL Sodium 135 L (137-145) mmol/L BUN 28 H (9-20) mg/dL Creatinine 1.81 H (0.66-1.25) mg/dL Glucose 103 H (74-99) mg/dL Calcium 8.0 L (8.4-10.2) mg/dL Microbiology - Last 24 Hours (Table) 08/16/22 10:15 Blood Culture - Preliminary Blood No Growth after 24 hours 04/03/22 10:00 Blood Culture - Preliminary Blood No Growth after 24 hours Assessment and Plan Assessment: Acute hypoxic respiratory failure secondary to pneumonia and CHF Paroxysmal atrial fibrillation with rapid ventricular rate. On anticoagulant with xarelto home Bilateral pneumonia. Likely community-acquired sepsis secondary to pneumonia Acute CHF likely precipitated by rapid ventricular rate. EF not known. Obesity with BMI 39.5 COPD not in exacerbation GERD Hypertension Presents to smoking DVT prophylaxis with patient is already on xarelto Plan: Patient will be continued on gentle IV hydration and monitor blood pressure closely. Continue with antibiotics in the form of ceftriaxone and azithromycin. elevated pro-calcitonin level. Follow-up culture reports Patient was on Cardizem drip and anticoagulation with xarelto. Cardiology was consulted for evaluation. Continue with torsemide 20 mg daily. Continue with home medications and oxygen supplementation. Tylenol when necessary for fever. Follow up closely. Discussed with his at bedside in detail. Time with Patient: Greater than 30
--- NOTE | 2022-04-09 00:57 | P.PN ---
Subjective Progress Note Date: 04/05/22 Patient is a 86-year-old male with a known history of paroxysmal atrial fibrillation on anticoagulation with xarelto, COPD, GERD, hypertension and previous history of smoking and also chronic lymphedema of the legs bilaterally presents to ER with complaints of generalized weakness. Patient is also having shortness of breath getting worse for the past 2 days. No complaints of chest pain. Patient was hypoxic with pulse ox 88% on room air on admission. Patient was also febrile and tachycardic on admission. T-max went up to 102.8. Denied any nausea or vomiting. No diarrhea. No headache or dizziness or lightheadedness. Patient also having worsening leg swelling. Chest x-ray showed low lung volumes and generalized hazy appearance which could represent atelectasis., Pneumonia or pulmonary edema. EKG showed atrial fibrillation with rapid ventricular rate Laboratory data showed WBC 7.9 hemoglobin 13.2 and platelets 192 INR 1.3, sodium 134 potassium 3.9, chloride 100 BUN 23 and creatinine 1.55 CKs 738. Liver is not elevated. ProBNP 2700 troponin 1 negative., TSH 0.16 and free T4 within normal limits at 0.98 Urinalysis showed 2+ protein 1+ ketones and moderate blood. Cordarone was pre sent not infected. 04/04/2022 Patient is currently lying in bed. Awake alert and oriented and feeling better today. Patient was febrile overnight. Continued on IV antibiotics. Heart rate is better controlled and also on Cardizem drip. Cardiology is on board. Continue with torsemide. Leg swelling is still present and denied any nausea vomiting abdominal pain or diarrhea. Laboratory test showed WBC 6.3 hemoglobin 12.9 and platelets 173 Sodium 134 potassium 4.0 chloride 104 bicarb is 23 BUN 28 and creatinine 1.81 and calcium 8.0 04/05/2022 Patient is currently sitting in the scale comfortably. Awake alert and oriented x3. Denies any chest pain or shortness of breath. Still having bilateral leg swelling. Also remains in atrial fibrillation with rapid regular rate with heart rate abov e 100. Metoprolol dose increased to 100 mg daily. Patient is also on torsemide. Laboratory data showed WBC 7.7 hemoglobin 12.4 and platelets 203 BUN 30 and creatinine 1.51. Patient is also on antibiotics in the form of ceftriaxone and azithromycin. Cardiology is on board. Torsemide is on hold. Current medications reviewed. Objective - Vital Signs Vital signs: Vital Signs Temp 97.9 F 04/05/22 15:49 Pulse 95 04/05/22 15:49 Resp 18 04/05/22 15:49 BP 133/79 04/05/22 15:49 Pulse Ox 92 L 04/05/22 15:49 FiO2 Intake & Output 04/04/22 04/05/22 04/05/22 18:59 06:59 18:59 Intake Total 240 Output Total 200 500 100 Balance -200 -260 -100 Intake: Oral 240 Output: Urine 200 500 100 Other: Voiding Method Urinal Urinal # Bowel Movements 1 - Exam PHYSICAL EXAMINATION: Patient is lying in the bed comfortably, no acute distress, awake alert and oriented. But weak.. HEENT: Normocephalic. Neck is supple. Pupils reactive. Nostrils clear. Oral cavity is moist. Neck reveals no JVD, carotid bruits, or thyromegaly. CHEST EXAMINATION: Trachea is central. Symmetrical expansion. Bibasilar diminished sounds and no wheeze. CARDIAC: Normal S1, S2 with no gallops. No murmurs ABDOMEN: Soft. Bowel sounds normal. No organomegaly. No abdominal bruits. Extremities: 2+ bilateral pedal edema. No clubbing or cyanosis Neurologically awake, alert, oriented x3 with well-coordinated movements. No brothers focal deficits noted Skin: No rash or skin lesions. Psychiatric: Coperative. Nonsuicidal Musculoskeletal: No joint swelling or deformity. Normal range of motion while in bed.. - Labs CBC & Chem 7: 04/08/22 07:42 04/08/22 07:42 Labs: Abnormal Lab Results - Last 24 Hours (Table) 04/05/22 04/05/22 Range/Units 07:26 07:26 RBC 4.06 L (4.30-5.90) m/uL Hgb 12.4 L (13.0-17.5) gm/dL Lymphocytes # 0.9 L (1.0-4.8) k/uL BUN 30 H (9-20) mg/dL Creatinine 1.51 H (0.66-1.25) mg/dL Glucose 117 H (74-99) mg/dL Calcium 8.0 L (8.4-10.2) mg/dL Microbiology - Last 24 Hours (Table) 04/03/22 10:00 Blood Culture Gram Stain - Preliminary Blood 04/03/22 10:15 Blood Culture - Preliminary Blood No Growth after 48 hours 04/03/22 10:00 Blood Culture - Final Blood Assessment and Plan Assessment: Acute hypoxic respiratory failure secondary to pneumonia and CHF Paroxysmal atrial fibrillation with rapid ventricular rate. On anticoagulant with xarelto home Bilateral pneumonia. Likely community-acquired sepsis secondary to pneumonia Acute CHF likely precipitated by rapid ventricular rate. EF not known. Obesity with BMI 39.5 COPD not in exacerbation GERD Hypertension Presents to smoking DVT prophylaxis with patient is already on xarelto Plan: Patient will be continued on gentle IV hydration and monitor blood pressure closely. Continue with antibiotics in the form of ceftriaxone and azithromycin. elevated pro-calcitonin level. Follow-up culture reports Patient was on Cardizem drip . Started on metoprolol and continue anticoagulation with xarelto. Cardiology is on board. torsemide 20 mg daily on hold. Continue with home medications and oxygen supplementation. Tylenol when necessary for fever. Follow up closely. Discussed with his at bedside in detail. Time with Patient: Greater than 30
--- NOTE | 2022-04-09 00:59 | P.PN ---
Subjective Progress Note Date: 04/06/22 Patient is a 86-year-old male with a known history of paroxysmal atrial fibrillation on anticoagulation with xarelto, COPD, GERD, hypertension and previous history of smoking and also chronic lymphedema of the legs bilaterally presents to ER with complaints of generalized weakness. Patient is also having shortness of breath getting worse for the past 2 days. No complaints of chest pain. Patient was hypoxic with pulse ox 88% on room air on admission. Patient was also febrile and tachycardic on admission. T-max went up to 102.8. Denied any nausea or vomiting. No diarrhea. No headache or dizziness or lightheadedness. Patient also having worsening leg swelling. Chest x-ray showed low lung volumes and generalized hazy appearance which could represent atelectasis., Pneumonia or pulmonary edema. EKG showed atrial fibrillation with rapid ventricular rate Laboratory data showed WBC 7.9 hemoglobin 13.2 and platelets 192 INR 1.3, sodium 134 potassium 3.9, chloride 100 BUN 23 and creatinine 1.55 CKs 738. Liver is not elevated. ProBNP 2700 troponin 1 negative., TSH 0.16 and free T4 within normal limits at 0.98 Urinalysis showed 2+ protein 1+ ketones and moderate blood. Cordarone was pre sent not infected. 04/04/2022 Patient is currently lying in bed. Awake alert and oriented and feeling better today. Patient was febrile overnight. Continued on IV antibiotics. Heart rate is better controlled and also on Cardizem drip. Cardiology is on board. Continue with torsemide. Leg swelling is still present and denied any nausea vomiting abdominal pain or diarrhea. Laboratory test showed WBC 6.3 hemoglobin 12.9 and platelets 173 Sodium 134 potassium 4.0 chloride 104 bicarb is 23 BUN 28 and creatinine 1.81 and calcium 8.0 04/05/2022 Patient is currently sitting in the scale comfortably. Awake alert and oriented x3. Denies any chest pain or shortness of breath. Still having bilateral leg swelling. Also remains in atrial fibrillation with rapid regular rate with heart rate abov e 100. Metoprolol dose increased to 100 mg daily. Patient is also on torsemide. Laboratory data showed WBC 7.7 hemoglobin 12.4 and platelets 203 BUN 30 and creatinine 1.51. Patient is also on antibiotics in the form of ceftriaxone and azithromycin. Cardiology is on board. Torsemide is on hold. 04/06/2022 Patient is currently lying in the bed. Awake alert and oriented x3. Breathing status is better. No complaints of chest pain or shortness of breath. Bilateral lower extremities are Osmany wrapped. Heart rate is better controlled. Continued on metoprolol. Digoxin was added. Follow-up renal function. Torsemide is on hold. Cardiology is following. Current medications reviewed. Objective - Vital Signs Vital signs: Vital Signs Temp 98.3 F 04/06/22 16:00 Pulse 55 L 04/06/22 16:00 Resp 18 04/06/22 16:00 BP 145/94 04/06/22 16:00 Pulse Ox 93 L 04/06/22 16:00 FiO2 Intake & Output 04/06/22 04/06/22 04/07/22 06:59 18:59 06:59 Intake Total 680 478 Balance 680 478 Intake: Oral 680 478 Other: Voiding Method Urinal # Voids 1 1 # Bowel Movements 1 1 - Exam PHYSICAL EXAMINATION: Patient is lying in the bed comfortably, no acute distress, awake alert and oriented. But weak.. HEENT: Normocephalic. Neck is supple. Pupils reactive. Nostrils clear. Oral cavity is moist. Neck reveals no JVD, carotid bruits, or thyromegaly. CHEST EXAMINATION: Trachea is central. Symmetrical expansion. Bibasilar diminished sounds and no wheeze. CARDIAC: Normal S1, S2 with no gallops. No murmurs ABDOMEN: Soft. Bowel sounds normal. No organomegaly. No abdominal bruits. Extremities: 2+ bilateral pedal edema. No clubbing or cyanosis Neurologically awake, alert, oriented x3 with well-coordinated movements. No brothers focal deficits noted Skin: No rash or skin lesions. Psychiatric: Coperative. Nonsuicidal Musculoskeletal: No joint swelling or deformity. Normal range of motion while in bed.. - Labs CBC & Chem 7: 04/08/22 07:42 04/08/22 07:42 Labs: Microbiology - Last 24 Hours (Table) 04/03/22 10:15 Blood Culture - Preliminary Blood No Growth after 72 hours 04/03/22 10:00 Blood Culture Gram Stain - Final Blood Blood Culture - Final Bacillus species Not Anthracis Assessment and Plan Assessment: Acute hypoxic respiratory failure secondary to pneumonia and CHF Paroxysmal atrial fibrillation with rapid ventricular rate. On anticoagulant with xarelto home Bilateral pneumonia. Likely community-acquired sepsis secondary to pneumonia Acute CHF likely precipitated by rapid ventricular rate. EF 35%. Obesity with BMI 39.5 COPD not in exacerbation GERD Hypertension Presents to smoking DVT prophylaxis with patient is already on xarelto Plan: Patient will be continued on gentle IV hydration and monitor blood pressure closely. Continue with antibiotics in the form of ceftriaxone and azithromycin. elevated pro-calcitonin level. Follow-up culture reports Patient was on Cardizem drip . Started on metoprolol and continue anticoagulation with xarelto. added dizoxin, Cardiology is on board. torsemide 20 mg daily on hold due to renal function. Continue with home medications and oxygen supplementation. Tylenol when necessary for fever. Follow up closely. Discussed with his at bedside in detail. Time with Patient: Greater than 30
--- NOTE | 2022-04-09 01:01 | P.PN ---
Subjective Progress Note Date: 04/07/22 Patient is a 86-year-old male with a known history of paroxysmal atrial fibrillation on anticoagulation with xarelto, COPD, GERD, hypertension and previous history of smoking and also chronic lymphedema of the legs bilaterally presents to ER with complaints of generalized weakness. Patient is also having shortness of breath getting worse for the past 2 days. No complaints of chest pain. Patient was hypoxic with pulse ox 88% on room air on admission. Patient was also febrile and tachycardic on admission. T-max went up to 102.8. Denied any nausea or vomiting. No diarrhea. No headache or dizziness or lightheadedness. Patient also having worsening leg swelling. Chest x-ray showed low lung volumes and generalized hazy appearance which could represent atelectasis., Pneumonia or pulmonary edema. EKG showed atrial fibrillation with rapid ventricular rate Laboratory data showed WBC 7.9 hemoglobin 13.2 and platelets 192 INR 1.3, sodium 134 potassium 3.9, chloride 100 BUN 23 and creatinine 1.55 CKs 738. Liver is not elevated. ProBNP 2700 troponin 1 negative., TSH 0.16 and free T4 within normal limits at 0.98 Urinalysis showed 2+ protein 1+ ketones and moderate blood. Cordarone was pre sent not infected. 04/04/2022 Patient is currently lying in bed. Awake alert and oriented and feeling better today. Patient was febrile overnight. Continued on IV antibiotics. Heart rate is better controlled and also on Cardizem drip. Cardiology is on board. Continue with torsemide. Leg swelling is still present and denied any nausea vomiting abdominal pain or diarrhea. Laboratory test showed WBC 6.3 hemoglobin 12.9 and platelets 173 Sodium 134 potassium 4.0 chloride 104 bicarb is 23 BUN 28 and creatinine 1.81 and calcium 8.0 04/05/2022 Patient is currently sitting in the scale comfortably. Awake alert and oriented x3. Denies any chest pain or shortness of breath. Still having bilateral leg swelling. Also remains in atrial fibrillation with rapid regular rate with heart rate abov e 100. Metoprolol dose increased to 100 mg daily. Patient is also on torsemide. Laboratory data showed WBC 7.7 hemoglobin 12.4 and platelets 203 BUN 30 and creatinine 1.51. Patient is also on antibiotics in the form of ceftriaxone and azithromycin. Cardiology is on board. Torsemide is on hold. 04/06/2022 Patient is currently lying in the bed. Awake alert and oriented x3. Breathing status is better. No complaints of chest pain or shortness of breath. Bilateral lower extremities are Osmany wrapped. Heart rate is better controlled. Continued on metoprolol. Digoxin was added. Follow-up renal function. Torsemide is on hold. Cardiology is following. 04/07/2022 Patient is resting in the bed comfortably. No complaints of chest pain or shortness of breath. Repeat chest x-ray yesterday showed chronic changes with no evidence for acute pulmonary disease. Blood cultures grew Bacillus species. Not anthresis. Heart rate is better controlled. Currently on metoprolol and digoxin. Due to worsening renal function nephrology will be consulted. Current medications reviewed. Objective - Vital Signs Vital signs: Vital Signs Temp 97.9 F 04/07/22 20:00 Pulse 70 04/07/22 20:00 Resp 18 04/07/22 20:00 BP 105/66 04/07/22 20:00 Pulse Ox 96 04/07/22 20:00 FiO2 Intake & Output 04/07/22 04/07/22 04/08/22 06:59 18:59 06:59 Intake Total 420 Output Total 1200 Balance -1200 420 Weight 117.934 kg Intake: Oral 420 Output: Urine 1200 Straight 1200 Other: Voiding Method Urinal Urinal Urinal # Voids 0 0 - Exam PHYSICAL EXAMINATION: Patient is lying in the bed comfortably, no acute distress, awake alert and oriented. But weak.. HEENT: Normocephalic. Neck is supple. Pupils reactive. Nostrils clear. Oral cavity is moist. Neck reveals no JVD, carotid bruits, or thyromegaly. CHEST EXAMINATION: Trachea is central. Symmetrical expansion. Bibasilar diminished sounds and no wheeze. CARDIAC: Normal S1, S2 with no gallops. No murmurs ABDOMEN: Soft. Bowel sounds normal. No organomegaly. No abdominal bruits. Extremities: 2+ bilateral pedal edema. No clubbing or cyanosis Neurologically awake, alert, oriented x3 with well-coordinated movements. No brothers focal deficits noted Skin: No rash or skin lesions. Psychiatric: Coperative. Nonsuicidal Musculoskeletal: No joint swelling or deformity. Normal range of motion while in bed.. - Labs CBC & Chem 7: 04/08/22 07:42 04/08/22 07:42 Labs: Abnormal Lab Results - Last 24 Hours (Table) 04/07/22 04/07/22 Range/Units 06:59 06:59 WBC 11.7 H (3.8-10.6) k/uL RBC 4.17 L (4.30-5.90) m/uL Hgb 12.9 L (13.0-17.5) gm/dL Neutrophils # 10.0 H (1.3-7.7) k/uL Lymphocytes # 0.6 L (1.0-4.8) k/uL BUN 46 H (9-20) mg/dL Creatinine 2.43 H (0.66-1.25) mg/dL Glucose 128 H (74-99) mg/dL Calcium 8.2 L (8.4-10.2) mg/dL Microbiology - Last 24 Hours (Table) 04/03/22 10:15 Blood Culture - Preliminary Blood No Growth after 96 hours Assessment and Plan Assessment: Acute hypoxic respiratory failure secondary to pneumonia and CHF Paroxysmal atrial fibrillation with rapid ventricular rate. On anticoagulant with xarelto home Bilateral pneumonia. Likely community-acquired sepsis secondary to pneumonia mild Acute CHF likely precipitated by rapid ventricular rate. EF 35%. Bilateral chronic lower extremity swelling. Acute kidney injury.Likely prerenal. Possible component of retention is also being considered. Obesity with BMI 39.5 COPD not in exacerbation GERD Hypertension Presents to smoking DVT prophylaxis with patient is already on xarelto Plan: Patient will be continued on gentle IV hydration and monitor blood pressure closely. Continue with antibiotics in the form of ceftriaxone and azithromycin. elevated pro-calcitonin level. Follow-up culture reports Patient was on Cardizem drip . Started on metoprolol and continue antic oagulation with xarelto. added dizoxin, Cardiology is on board. torsemide 20 mg daily on hold due to renal function. Continue with home medications and oxygen supplementation. Tylenol when necessary for fever. Follow up closely. Discussed with his at bedside in detail. Time with Patient: Greater than 30
--- NOTE | 2022-04-09 01:05 | P.PN ---
Subjective Progress Note Date: 04/08/22 Patient is a 86-year-old male with a known history of paroxysmal atrial fibrillation on anticoagulation with xarelto, COPD, GERD, hypertension and previous history of smoking and also chronic lymphedema of the legs bilaterally presents to ER with complaints of generalized weakness. Patient is also having shortness of breath getting worse for the past 2 days. No complaints of chest pain. Patient was hypoxic with pulse ox 88% on room air on admission. Patient was also febrile and tachycardic on admission. T-max went up to 102.8. Denied any nausea or vomiting. No diarrhea. No headache or dizziness or lightheadedness. Patient also having worsening leg swelling. Chest x-ray showed low lung volumes and generalized hazy appearance which could represent atelectasis., Pneumonia or pulmonary edema. EKG showed atrial fibrillation with rapid ventricular rate Laboratory data showed WBC 7.9 hemoglobin 13.2 and platelets 192 INR 1.3, sodium 134 potassium 3.9, chloride 100 BUN 23 and creatinine 1.55 CKs 738. Liver is not elevated. ProBNP 2700 troponin 1 negative., TSH 0.16 and free T4 within normal limits at 0.98 Urinalysis showed 2+ protein 1+ ketones and moderate blood. Cordarone was pre sent not infected. 04/04/2022 Patient is currently lying in bed. Awake alert and oriented and feeling better today. Patient was febrile overnight. Continued on IV antibiotics. Heart rate is better controlled and also on Cardizem drip. Cardiology is on board. Continue with torsemide. Leg swelling is still present and denied any nausea vomiting abdominal pain or diarrhea. Laboratory test showed WBC 6.3 hemoglobin 12.9 and platelets 173 Sodium 134 potassium 4.0 chloride 104 bicarb is 23 BUN 28 and creatinine 1.81 and calcium 8.0 04/05/2022 Patient is currently sitting in the scale comfortably. Awake alert and oriented x3. Denies any chest pain or shortness of breath. Still having bilateral leg swelling. Also remains in atrial fibrillation with rapid regular rate with heart rate abov e 100. Metoprolol dose increased to 100 mg daily. Patient is also on torsemide. Laboratory data showed WBC 7.7 hemoglobin 12.4 and platelets 203 BUN 30 and creatinine 1.51. Patient is also on antibiotics in the form of ceftriaxone and azithromycin. Cardiology is on board. Torsemide is on hold. 04/06/2022 Patient is currently lying in the bed. Awake alert and oriented x3. Breathing status is better. No complaints of chest pain or shortness of breath. Bilateral lower extremities are Osmany wrapped. Heart rate is better controlled. Continued on metoprolol. Digoxin was added. Follow-up renal function. Torsemide is on hold. Cardiology is following. 04/07/2022 Patient is resting in the bed comfortably. No complaints of chest pain or shortness of breath. Repeat chest x-ray yesterday showed chronic changes with no evidence for acute pulmonary disease. Blood cultures grew Bacillus species. Not anthresis. Heart rate is better controlled. Currently on metoprolol and digoxin. Due to worsening renal function nephrology will be consulted. 04/08/2022 Patient is resting in bed. Awake alert and oriented x3. No complaints of chest pain or shortness of breath patient did have decreased urine output yesterday and was given IV fluid boluse.. Renal function improved with creatinine level 2.1 today. Patient complains of hiccups this morning. Patient denied any nausea or vomiting abdominal pain or diarrhea. Continued on antibiotics and off ceftriaxone azithromycin. Nephrology and cardiology on board. Current medications reviewed. Objective - Vital Signs Vital signs: Vital Signs Temp 97.3 F L 04/08/22 20:15 Pulse 96 04/08/22 20:15 Resp 19 04/08/22 20:15 BP 117/73 04/08/22 20:15 Pulse Ox 99 04/08/22 20:15 FiO2 Intake & Output 04/08/22 04/08/22 04/09/22 06:59 18:59 06:59 Intake Total 360 Output Total 1640 925 Balance -1640 -565 Weight 95.5 kg Intake: Oral 360 Output: Urine 1640 925 Straight 800 500 Other: Voiding Method Indwelling Catheter Indwelling Catheter # Voids 0 - Exam PHYSICAL EXAMINATION: Patient is lying in the bed comfortably, no acute distress, awake alert and oriented. But weak.. HEENT: Normocephalic. Neck is supple. Pupils reactive. Nostrils clear. Oral cavity is moist. Neck reveals no JVD, carotid bruits, or thyromegaly. CHEST EXAMINATION: Trachea is central. Symmetrical expansion. Bibasilar diminished sounds and no wheeze. CARDIAC: Normal S1, S2 with no gallops. No murmurs ABDOMEN: Soft. Bowel sounds normal. No organomegaly. No abdominal bruits. Extremities: 2+ bilateral pedal edema. No clubbing or cyanosis Neurologically awake, alert, oriented x3 with well-coordinated movements. No brothers focal deficits noted Skin: No rash or skin lesions. Psychiatric: Coperative. Nonsuicidal Musculoskeletal: No joint swelling or deformity. Normal range of motion while in bed.. - Labs CBC & Chem 7: 04/08/22 07:42 04/08/22 07:42 Labs: Abnormal Lab Results - Last 24 Hours (Table) 04/08/22 04/08/22 04/08/22 Range/Units 07:42 07:42 16:35 RBC 3.96 L (4.30-5.90) m/uL Hgb 12.2 L (13.0-17.5) gm/dL Lymphocytes # 0.5 L (1.0-4.8) k/uL BUN 54 H (9-20) mg/dL Creatinine 2.11 H (0.66-1.25) mg/dL Glucose 124 H (74-99) mg/dL POC Glucose (mg/dL) 130 H (70-110) mg/dL Calcium 8.1 L (8.4-10.2) mg/dL Microbiology - Last 24 Hours (Table) 04/03/22 10:15 Blood Culture - Preliminary Blood No Growth after 120 hours Assessment and Plan Assessment: Acute hypoxic respiratory failure secondary to pneumonia and CHF Paroxysmal atrial fibrillation with rapid ventricular rate. On anticoagulant with xarelto home. Rate controlled with metoprolol and digoxin was added. Bilateral pneumonia. Likely community-acquired sepsis secondary to pneumonia mild Acute CHF likely precipitated by rapid ventricular rate. EF 35%. Bilateral chronic lower extremity swelling. Acute kidney injury.Likely prerenal. Possible component of retention is also be ing considered. Obesity with BMI 39.5 COPD not in exacerbation GERD Hypertension Presents to smoking DVT prophylaxis with patient is already on xarelto Plan: Patient will be continued on gentle IV hydration and monitor blood pressure closely. Continue with antibiotics in the form of ceftriaxone and azithromycin. elevated pro-calcitonin level. Follow-up culture reports Patient was on Cardizem drip . Started on metoprolol and continue anticoagulation with xarelto. added dizoxin, Cardiology is on board. torsemide 20 mg daily on hold due to renal function. Continue with home medications and oxygen supplementation. Tylenol when necessary for fever. Follow up closely. Discussed with his at bedside in detail. Time with Patient: Greater than 30
[2022-04-09] MEDS: SODIUM CHLORIDE 0.9% 250 ML IV SCH ×3 (03:57→10:04)
[2022-04-09 06:18] LABS: Glucose,Whole Blood 109 mg/dL (70-110)
[2022-04-09 08:02] LABS: Basophils % (A) 0 %; Eosinophils # (A) 0.2 k/uL (0-0.7); Eosinophils % (A) 3 %; HCT 39.1 % (39.0-53.0); HGB 11.9 gm/dL (13.0-17.5); Hypochromasia Marked; Lymphocytes # (A) 0.6 k/uL (1.0-4.8); Lymphocytes % (A) 8 %; MCH 30.5 pg (25.0-35.0); MCHC 30.4 g/dL (31.0-37.0); MCV 100.5 fL (80.0-100.0); Macrocytosis Slight; Mean Platelet Volume 8.9; Monocytes # (A) 0.7 k/uL (0-1.0); Monocytes % (A) 10 %; Neutrophils # (A) 5.8 k/uL (1.3-7.7); Neutrophils % (A) 78 %; Platelet Count 171 k/uL (150-450); RBC 3.89 m/uL (4.30-5.90); RDW 13.9 % (11.5-15.5); WBC 7.5 k/uL (3.8-10.6)
[2022-04-09 08:16] LABS: Calcium 8.3 mg/dL (8.4-10.2); Potassium 4.5 mmol/L (3.5-5.1)
[2022-04-09] MEDS: METOPROLOL SUCCINATE (ER) 100 MG TAB.ER.24H PO SCH (10:05)
[2022-04-09] MEDS: LOSARTAN 25 MG TAB PO SCH (10:05)
[2022-04-09] MEDS: POTASSIUM CITRATE 10 MEQ TABLET.ER PO SCH (10:05)
[2022-04-09] MEDS: DIGOXIN 125 MCG TAB PO SCH (10:05)
[2022-04-09] MEDS: TAMSULOSIN 0.4 MG CAP.ER.24H PO SCH (10:05)
--- NOTE | 2022-04-09 10:19 | P.PN ---
Subjective Patient is seen for follow-up for acute kidney injury and top of chronic kidney disease. 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 Serum creatinine had peaked at 2.4 and has decreased now to 1.5 mg/dL. Patient is status post IV fluids. Blood pressure was low and patient is maintained on Cozaar Objective - Vital Signs Vital signs: Vital Signs Temp 98.3 F 04/09/22 04:30 Pulse 76 04/09/22 04:30 Resp 18 04/09/22 04:30 BP 145/85 04/09/22 04:30 Pulse Ox 95 04/09/22 04:30 FiO2 Intake & Output 04/08/22 04/09/22 04/09/22 18:59 06:59 18:59 Intake Total 360 100 Output Total 925 980 Balance -565 -980 100 Intake: Oral 360 100 Output: Urine 925 980 Straight 500 500 Other: Voiding Method Indwelling Catheter Indwelling Catheter # Bowel Movements 1 - Exam Awake, comfortable, not in any acute distress Examination of the heart S1 and S2 Examination lungs bilateral breath sounds are heard Abdomen is soft nontender Examination of lower extremities shows 1+ edema bilaterally [employer] exam grossly intact - Labs CBC & Chem 7: 04/09/22 07:21 04/09/22 07:25 Labs: Abnormal Lab Results - Last 24 Hours (Table) 04/08/22 04/09/22 04/09/22 Range/Units 16:35 07:21 07:25 RBC 3.89 L (4.30-5.90) m/uL Hgb 11.9 L (13.0-17.5) gm/dL MCV 100.5 H (80.0-100.0) fL MCHC 30.4 L (31.0-37.0) g/dL Lymphocytes # 0.6 L (1.0-4.8) k/uL BUN 59 H (9-20) mg/dL Creatinine 1.52 H (0.66-1.25) mg/dL Glucose 111 H (74-99) mg/dL POC Glucose (mg/dL) 130 H (70-110) mg/dL Calcium 8.3 L (8.4-10.2) mg/dL Microbiology - Last 24 Hours (Table) 04/03/22 10:15 Blood Culture - Preliminary Blood No Growth after 120 hours Assessment and Plan Assessment: 1. Acute kidney injury associated with volume depletion and prerenal state in the setting of use of angiotensin receptor blockers. Status post IV fluids. Blood pressure is improved 2. 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 History of COPD 4. History of cardiomyopathy, ejection fraction 35% 5. History of nephrolithiasis Plan: Decrease dose of Cozaar Continue off of IV fluids Continue to encourage increase oral intake Repeat labs in a.m. Can resume low-dose diuretics in 3-4 days time. Follow-up as outpatient in about 1 week's time post discharge to follow-up on volume status Continue with low-dose Cozaar upon discharge
[2022-04-09 11:27] LABS: Glucose,Whole Blood 116 mg/dL (70-110)
--- NOTE | 2022-04-09 12:53 | P.PN ---
Subjective This is a 86-year-old male with a past medical history significant for unspecified cardiomyopathy, permanent atrial fibrillation, hypertension, hyper lipidemia, and chronic lower extremity venous ulcers. Patient follows in the office with Dr. Varela. We have been asked to see the patient in consultation for Ron ronquillo with RVR. Patient states he presented to the hospital with generalized weakness and feeling as though his balance was off. He reports falling at home but denies any syncopal episodes. The patient was found to be febrile upon admission. He has been treated for bilateral pneumonia. Telemetry on admission revealed atrial fibrillation with a heart rate between 100-115. EKG on admission revealed atrial fibrillation with RVR. He was initially swtarted on Cardizem drip which was discontinued secondary to cardiomyopathy. DIAGNOSTICS: * Most recent echocardiogram obtained in October 2021 reveal ejection fraction 35% with mild aortic regurgitation, mild mitral regurgitation, mild tricuspid regurgitation * Cardiac catheterization history: Unknown 04/09 Patient seen and examined. Denies any chest pain or pressure. Denies any shortness of breath, palpitations, lightheadedness or dizziness. Still very weak and being assessed for possible rehab. Creatinine improving, 1.52 today. Seen by nephrology and diuretics have been held with gentle IV fluids. Telemetry reviewed patient is in atrial fibrillation with controlled ventricular rates. PHYSICAL EXAM: VITAL SIGNS: Reviewed. GENERAL: Well-developed in no acute distress. HEENT: Head is normocephalic. Neck supple. No JVD LUNGS: Respirations even and unlabored. Lungs diminished bilaterally HEART: Irregular rate and rhythm. S1 and S2 heard. ABDOMEN: Soft. Nondistended. Nontender. EXTREMITIES: Normal range of motion. No clubbing or cyanosis. Peripheral pulses intact. Bilateral lower extremity edema present with Osmany wraps. NEUROLOGIC: Awake and alert. Oriented x 3. ASSESSMENT: Generalized weakness with mechanical fall Fever Bilateral pneumonia Permanent atrial fibrillation, currently controlled, anticoagulated with Xarelto Cardiomyopathy, unspecified, ejection fraction 35% Chronic lower extremity venous ulcers COPD Acute kidney injury, baseline unknown PLAN: Continue with digoxin Continue beta grady Continue anticoagulation with Xarelto Losartan decreased Continue to hold diuretics and monitor kidney function. Creatinine improving. Patient very debilitated and undergoing workup for rehab. Continue supportive care with very slow progression. From a cardiology perspective, no further changes at this time. We will follow the patient as needed. Please reconsult if needed. Nurse practitioner note has been reviewed by physician. Signing provider agrees with the documented findings, assessment, and plan of care. Objective - Vital Signs Vital signs: Vital Signs Temp 98 F 04/09/22 10:05 Pulse 90 04/09/22 10:05 Resp 20 04/09/22 10:05 BP 138/82 04/09/22 10:05 Pulse Ox 94 L 04/09/22 10:05 FiO2 Intake & Output 04/08/22 04/09/22 04/09/22 18:59 06:59 18:59 Intake Total 360 100 Output Total 925 980 Balance -565 -980 100 Intake: Oral 360 100 Output: Urine 925 980 Straight 500 500 Other: Voiding Method Indwelling Catheter Indwelling Catheter Indwelling Catheter # Bowel Movements 1 1 - Labs CBC & Chem 7: 04/09/22 07:21 04/09/22 07:25 Labs: Abnormal Lab Results - Last 24 Hours (Table) 04/08/22 04/09/22 04/09/22 Range/Units 16:35 07:21 07:25 RBC 3.89 L (4.30-5.90) m/uL Hgb 11.9 L (13.0-17.5) gm/dL MCV 100.5 H (80.0-100.0) fL MCHC 30.4 L (31.0-37.0) g/dL Lymphocytes # 0.6 L (1.0-4.8) k/uL BUN 59 H (9-20) mg/dL Creatinine 1.52 H (0.66-1.25) mg/dL Glucose 111 H (74-99) mg/dL POC Glucose (mg/dL) 130 H (70-110) mg/dL Calcium 8.3 L (8.4-10.2) mg/dL 04/09/22 Range/Units 11:26 RBC (4.30-5.90) m/uL Hgb (13.0-17.5) gm/dL MCV (80.0-100.0) fL MCHC (31.0-37.0) g/dL Lymphocytes # (1.0-4.8) k/uL BUN (9-20) mg/dL Creatinine (0.66-1.25) mg/dL Glucose (74-99) mg/dL POC Glucose (mg/dL) 116 H (70-110) mg/dL Calcium (8.4-10.2) mg/dL Microbiology - Last 24 Hours (Table) 04/03/22 10:15 Blood Culture - Final Blood No Growth after 144 hours
[2022-04-09 16:35] LABS: Glucose,Whole Blood 131 mg/dL (70-110)
[2022-04-09] MEDS: RIVAROXABAN 20 MG TAB PO SCH (17:40)
[2022-04-09 20:17] LABS: Glucose,Whole Blood 161 mg/dL (70-110)
--- NOTE | 2022-04-10 02:19 | P.PN ---
Subjective Progress Note Date: 04/09/22 Patient is a 86-year-old male with a known history of paroxysmal atrial fibrillation on anticoagulation with xarelto, COPD, GERD, hypertension and previous history of smoking and also chronic lymphedema of the legs bilaterally presents to ER with complaints of generalized weakness. Patient is also having shortness of breath getting worse for the past 2 days. No complaints of chest pain. Patient was hypoxic with pulse ox 88% on room air on admission. Patient was also febrile and tachycardic on admission. T-max went up to 102.8. Denied any nausea or vomiting. No diarrhea. No headache or dizziness or lightheadedness. Patient also having worsening leg swelling. Chest x-ray showed low lung volumes and generalized hazy appearance which could represent atelectasis., Pneumonia or pulmonary edema. EKG showed atrial fibrillation with rapid ventricular rate Laboratory data showed WBC 7.9 hemoglobin 13.2 and platelets 192 INR 1.3, sodium 134 potassium 3.9, chloride 100 BUN 23 and creatinine 1.55 CKs 738. Liver is not elevated. ProBNP 2700 troponin 1 negative., TSH 0.16 and free T4 within normal limits at 0.98 Urinalysis showed 2+ protein 1+ ketones and moderate blood. Cordarone was pre sent not infected. 04/04/2022 Patient is currently lying in bed. Awake alert and oriented and feeling better today. Patient was febrile overnight. Continued on IV antibiotics. Heart rate is better controlled and also on Cardizem drip. Cardiology is on board. Continue with torsemide. Leg swelling is still present and denied any nausea vomiting abdominal pain or diarrhea. Laboratory test showed WBC 6.3 hemoglobin 12.9 and platelets 173 Sodium 134 potassium 4.0 chloride 104 bicarb is 23 BUN 28 and creatinine 1.81 and calcium 8.0 04/05/2022 Patient is currently sitting in the scale comfortably. Awake alert and oriented x3. Denies any chest pain or shortness of breath. Still having bilateral leg swelling. Also remains in atrial fibrillation with rapid regular rate with heart rate abov e 100. Metoprolol dose increased to 100 mg daily. Patient is also on torsemide. Laboratory data showed WBC 7.7 hemoglobin 12.4 and platelets 203 BUN 30 and creatinine 1.51. Patient is also on antibiotics in the form of ceftriaxone and azithromycin. Cardiology is on board. Torsemide is on hold. 04/06/2022 Patient is currently lying in the bed. Awake alert and oriented x3. Breathing status is better. No complaints of chest pain or shortness of breath. Bilateral lower extremities are Osmany wrapped. Heart rate is better controlled. Continued on metoprolol. Digoxin was added. Follow-up renal function. Torsemide is on hold. Cardiology is following. 04/07/2022 Patient is resting in the bed comfortably. No complaints of chest pain or shortness of breath. Repeat chest x-ray yesterday showed chronic changes with no evidence for acute pulmonary disease. Blood cultures grew Bacillus species. Not anthresis. Heart rate is better controlled. Currently on metoprolol and digoxin. Due to worsening renal function nephrology will be consulted. 04/08/2022 Patient is resting in bed. Awake alert and oriented x3. No complaints of chest pain or shortness of breath patient did have decreased urine output yesterday and was given IV fluid boluse.. Renal function improved with creatinine level 2.1 today. Patient complains of hiccups this morning. Patient denied any nausea or vomiting abdominal pain or diarrhea. Continued on antibiotics and off ceftriaxone azithromycin. Nephrology and cardiology on board. 04/09/2022 Patient is seen this am and at the bedside. Patient is being followed by nephrology and cardiology. Kidney functions improving and blood pressure is improved as well. Continued on 4L via NC and denies any worsening shortness of breath. Patient is afebrile and denies chest pain or palpitations. Patient is tolerating diet with no reports of nausea or vomiting noted. PT following recommending ecf and case management is following and awaiting insurance auth. Review of systems: Constitutional: No reports of fatigue, fever, or chills Cardiovascular: No reports of chest pain or palpitations Respiratory: No reports of worsening shortness of breath or cough GI: No reports of nausea, vomiting, or diarrhea : No reports of dysuria or retention Neurovascular: reports of generalized weakness All medications have been reviewed Active Medications Acetaminophen (Acetaminophen Tab 325 Mg Tab) 650 mg PO Q6HR PRN PRN Reason: Fever and/ or Mild Pain Last Admin: 04/08/22 17:13 Dose: 650 mg Hydrocodone Bitart/Acetaminophen (Hydrocodone/Apap 5-325mg 1 Each Tab) 1 each PO Q6HR PRN PRN Reason: Pain Last Admin: 04/08/22 22:06 Dose: 1 each Albuterol/Ipratropium (Ipratropium-Albuterol 3 Ml Neb) 3 ml INHALATION RT-Q4H PRN PRN Reason: shortness of breath Digoxin (Digoxin 125 Mcg Tab) 125 mcg PO DAILY [facility] Last Admin: 04/09/22 10:05 Dose: 125 mcg Ergocalciferol (Ergocalciferol 1,250 Mcg (50,000 Iu) Capsule) 1,250 mcg PO Q30D [facility] Losartan Potassium (Losartan 25 Mg Tab) 25 mg PO DAILY [facility] Last Admin: 04/09/22 10:05 Dose: 25 mg Metoclopramide HCl (Metoclopramide 5 Mg Tab) 5 mg PO TID PRN PRN Reason: Dyspepsia Last Admin: 04/07/22 20:46 Dose: 5 mg Metoprolol Succinate (Metoprolol Succinate (Er) 100 Mg Tab.Er.24h) 100 mg PO DAILY [facility] Last Admin: 04/09/22 10:05 Dose: 100 mg Miscellaneous Information (Pneumonia Protocol Utilized 1 Each Misc) 1 each PO ONCE PRN PRN Reason: Per Protocol Potassium Citrate (Potassium Citrate 10 Meq Tablet.Er) 10 meq PO DAILY [facility] Last Admin: 04/09/22 10:05 Dose: 10 meq Rivaroxaban (Rivaroxaban 20 Mg Tab) 20 mg PO W/SUPPER [facility]; Protocol Last Admin: 04/09/22 17:40 Dose: 20 mg Tamsulosin HCl (Tamsulosin 0.4 Mg Cap.Er.24h) 0.4 mg PO PC-BRKFST [facility] Last Admin: 04/09/22 10:05 Dose: 0.4 mg PHYSICAL EXAMINATION: Patient is lying in the bed comfortably, no acute distress, awake alert and oriented. But weak.. HEENT: Normocephalic. Neck is supple. Pupils reactive. Nostrils clear. Oral cavity is moist. Neck reveals no JVD, carotid bruits, or thyromegaly. CHEST EXAMINATION: Trachea is central. Symmetrical expansion. Bibasilar diminished sounds and no wheeze. CARDIAC: Normal S1, S2 with no gallops. No murmurs ABDOMEN: Soft. Bowel sounds normal. No organomegaly. No abdominal bruits. Extremities: 2+ bilateral pedal edema. No clubbing or cyanosis Neurologically awake, alert, oriented x3 with well-coordinated movements. No brothers focal deficits noted Skin: No rash or skin lesions. Psychiatric: Coperative. Nonsuicidal Musculoskeletal: No joint swelling or deformity. Normal range of motion while in bed.. Assessment: Acute hypoxic respiratory failure secondary to pneumonia and CHF Paroxysmal atrial fibrillation with rapid ventricular rate. On anticoagulant with xarelto home. Rate controlled with metoprolol and digoxin was added. Bilateral pneumonia. Likely community-acquired sepsis secondary to pneumonia mild Acute CHF likely precipitated by rapid ventricular rate. EF 35%. Bilateral chronic lower extremity swelling. Acute kidney injury.Likely prerenal. Possible component of retention is also being considered. Obesity with BMI 39.5 COPD not in exacerbation GERD Hypertension DVT prophylaxis with patient is already on xarelto Plan: Recommend to continue with current medications and management with cardiology and nephrology following. Patient is planning for ECF due to weakness and felicita iting insurance authorization at this time. Blood pressure is improved and continue low dose Cozaar. Continue cardiac medications including xarelto PT/OT recommending ECF and case management following Recommend close outpatient follow up with nephrology and cardiology Continue to hold diuretics (torsemide) for the next 3-4 days and then slowly resume Due to multiple complex medical issues, prognosis is guarded Possible discharge to ECF in 24 hours. The impression and plan of care has been dictated by Rasheeda Hernandez, Nurse Practitioner as directed. Dr. Awais MD I have performed a history and examination and MDM of this patient, discussed the same with the dictator, and agree with the dictator's assessment and plan as written ,documented as a scribe. Based on total visit time, I have performed more than 50% of the visit. Objective - Vital Signs Vital signs: Vital Signs Temp 98.3 F 04/09/22 04:30 Pulse 76 04/09/22 04:30 Resp 18 04/09/22 04:30 BP 145/85 04/09/22 04:30 Pulse Ox 95 04/09/22 04:30 FiO2 Intake & Output 04/08/22 04/09/22 04/09/22 18:59 06:59 18:59 Intake Total 360 100 Output Total 925 980 Balance -565 -980 100 Intake: Oral 360 100 Output: Urine 925 980 Straight 500 500 Other: Voiding Method Indwelling Catheter Indwelling Catheter # Bowel Movements 1 - Labs CBC & Chem 7: 04/09/22 07:21 04/09/22 07:25 Labs: Abnormal Lab Results - Last 24 Hours (Table) 04/08/22 04/09/22 04/09/22 Range/Units 16:35 07:21 07:25 RBC 3.89 L (4.30-5.90) m/uL Hgb 11.9 L (13.0-17.5) gm/dL MCV 100.5 H (80.0-100.0) fL MCHC 30.4 L (31.0-37.0) g/dL Lymphocytes # 0.6 L (1.0-4.8) k/uL BUN 59 H (9-20) mg/dL Creatinine 1.52 H (0.66-1.25) mg/dL Glucose 111 H (74-99) mg/dL POC Glucose (mg/dL) 130 H (70-110) mg/dL Calcium 8.3 L (8.4-10.2) mg/dL Microbiology - Last 24 Hours (Table) 04/03/22 10:15 Blood Culture - Preliminary Blood No Growth after 120 hours
[2022-04-10] MEDS: POTASSIUM CITRATE 10 MEQ TABLET.ER PO SCH (09:33)
[2022-04-10] MEDS: DIGOXIN 125 MCG TAB PO SCH (09:33)
[2022-04-10] MEDS: TAMSULOSIN 0.4 MG CAP.ER.24H PO SCH (09:33)
[2022-04-10] MEDS: METOPROLOL SUCCINATE (ER) 100 MG TAB.ER.24H PO SCH (09:33)
[2022-04-10] MEDS: LOSARTAN 25 MG TAB PO SCH (09:33)
--- NOTE | 2022-04-10 10:09 | P.PN ---
Subjective Patient is seen for follow-up for acute kidney injury and top of chronic kidney disease. 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 Serum creatinine had peaked at 2.4 and has decreased now to 1.5 mg/dL. Patient is status post IV fluids. Blood pressure was low and patient is maintained on Cozaar Blood culture grew bacillus species Objective - Vital Signs Vital signs: Vital Signs Temp 97.5 F L 04/10/22 04:10 Pulse 76 04/10/22 04:10 Resp 18 04/10/22 04:10 BP 132/64 04/10/22 04:10 Pulse Ox 94 L 04/10/22 08:12 FiO2 Intake & Output 04/09/22 04/10/22 04/10/22 18:59 06:59 18:59 Intake Total 520 180 Output Total 700 800 Balance -180 -800 180 Intake: Oral 520 180 Output: Urine 700 800 Straight 300 Other: Voiding Method Indwelling Catheter Indwelling Catheter # Bowel Movements 1 - Exam Awake, comfortable, not in any acute distress Examination of the heart S1 and S2 Examination lungs bilateral breath sounds are heard Abdomen is soft nontender Examination of lower extremities shows 2+ edema bilaterally [employer] exam grossly intact - Labs CBC & Chem 7: 04/09/22 07:21 04/09/22 07:25 Labs: Abnormal Lab Results - Last 24 Hours (Table) 04/09/22 04/09/22 04/09/22 Range/Units 11:26 16:33 20:15 POC Glucose (mg/dL) 116 H 131 H 161 H (70-110) mg/dL Microbiology - Last 24 Hours (Table) 04/03/22 10:15 Blood Culture - Final Blood No Growth after 144 hours Assessment and Plan Assessment: 1. Acute kidney injury associated with volume depletion and prerenal state in the setting of use of angiotensin receptor blockers and sepsis. Status post IV fluids. Blood pressure is improved 2. 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 History of COPD 4. History of cardiomyopathy, ejection fraction 35% 5. History of nephrolithiasis 6. Bacteremia with blood culture growing bacillus species, 1 out of 2. Final culture after 144 hours shows no growth. Plan: Continue with decreased dose of Cozaar Continue off of IV fluids Continue to encourage increase oral intake Repeat labs in a.m. Can resume low-dose diuretics in 3-4 days time. Follow-up as outpatient in about 1 week's time post discharge to follow-up on volume status Continue with lower dose Cozaar upon discharge
[2022-04-10] MEDS: ACETAMINOPHEN TAB 325 MG TAB PO PRN (10:21)
[2022-04-10 11:08] LABS: Calcium 8.3 mg/dL (8.4-10.2); Potassium 4.7 mmol/L (3.5-5.1)
[2022-04-10 15:22] LABS: Digoxin 0.9 ng/mL
--- NOTE | 2022-04-10 15:41 | XR ---
EXAMINATION TYPE: XR chest 1V portable DATE OF EXAM: 04/10/2022 COMPARISON: Chest x-ray 04/06/2022 HISTORY: Shortness of breath TECHNIQUE: Single frontal view of the chest is obtained. FINDINGS: Trachea is again deviated toward the right. The heart is enlarged. Accentuation of the hea rt size may be at least in part due to rotation. Aorta is tortuous and dense. No evident pneumothorax or pleural effusion. Question some soft tissue prominence in the right hilar region. There are overl [place] leads. Arthropathy noted in the shoulders. IMPRESSION: There is persistent cardiomegaly. Rotated exam may be at least in part the cause of the prominence of the right hilar region. Suspect underlying aortic ectasia. Tracheal deviation. Consider chest CT.
[2022-04-10 16:52] LABS: Appearance,Urine Cloudy (Clear); Bilirubin,Urine Negative (Negative); Blood,Urine Large (Negative); Color,Urine Yellow; Glucose,Urine (UA) Negative (Negative); Ketones,Urine Negative (Negative); Leukocyte Esterase,Urine Moderate (Negative); Mucus,Urine Occasional /hpf; Nitrite,Urine Negative (Negative); PH, Urine 5.5 (5.0-8.0); Protein,Urine 1+ (Negative); RBC,Urine 21 /hpf (0-5); Specific Gravity,Urine 1.021 (1.001-1.035); Squamous Epithelial Cell,Urine <1 /hpf (0-4); Uric Acid Crystals,Urine Few /hpf; Urobilinogen,Urine <2.0 mg/dL (<2.0); WBC,Urine 7 /hpf (0-5)
[2022-04-10] MEDS: RIVAROXABAN 20 MG TAB PO SCH (17:08)
--- NOTE | 2022-04-10 17:30 | CT ---
EXAMINATION TYPE: CT brain wo con CT DLP: 1251.4 mGycm, Automated exposure control for dose reduction was used. DATE OF EXAM: 04/10/2022 4:52 PM COMPARISON: None. CLINICAL INDICATION:Male, 86 years old with history of ams, Altered mental status. TECHNIQUE: Brain: Axial CT images of the brain were obtained with coronal and sagittal reformats created and rev iewed. Contrast used: None. Oral contrast used: None. FINDINGS: Brain: Extra-axial spaces: No abnormal extra-axial fluid collections. Ventricular system: Dilatation in proportion to cerebral atrophy. Cerebral parenchyma: There is fullness within the pituitary fossa measuring up to 17 mm. Cerebral atr ophy. No acute intraparenchymal hemorrhage or mass effect. The balderas-white junction is well different iated. Scattered hypoattenuating areas are seen within the white matter. Cerebellum: Unremarkable. Mass effect: No evidence of midline shift. Intracranial vasculature: Atherosclerotic calcifications of the intracranial vessels. Soft tissues: Normal. Calvarium/osseous structures: No depressed skull fracture. Paranasal sinuses and mastoid air cells: Mild scattered paranasal sinus disease. Visualized orbits: Orbital contents are intact. IMPRESSION: 1. No acute intracranial process. 2. Pituitary fossa fullness which could represent underlying pituitary lesion such as a macroadenoma. . Consider MRI pituitary mass protocol for further evaluation. 3. Nonspecific white matter changes, likely secondary to chronic small vessel ischemic disease.
[2022-04-11] MEDS: ACETAMINOPHEN TAB 325 MG TAB PO PRN (04:56)
--- NOTE | 2022-04-11 07:08 | P.PN ---
Subjective Progress Note Date: 04/10/22 Patient is a 86-year-old male with a known history of paroxysmal atrial fibrillation on anticoagulation with xarelto, COPD, GERD, hypertension and previous history of smoking and also chronic lymphedema of the legs bilaterally presents to ER with complaints of generalized weakness. Patient is also having shortness of breath getting worse for the past 2 days. No complaints of chest pain. Patient was hypoxic with pulse ox 88% on room air on admission. Patient was also febrile and tachycardic on admission. T-max went up to 102.8. Denied any nausea or vomiting. No diarrhea. No headache or dizziness or lightheadedness. Patient also having worsening leg swelling. Chest x-ray showed low lung volumes and generalized hazy appearance which could represent atelectasis., Pneumonia or pulmonary edema. EKG showed atrial fibrillation with rapid ventricular rate Laboratory data showed WBC 7.9 hemoglobin 13.2 and platelets 192 INR 1.3, sodium 134 potassium 3.9, chloride 100 BUN 23 and creatinine 1.55 CKs 738. Liver is not elevated. ProBNP 2700 troponin 1 negative., TSH 0.16 and free T4 within normal limits at 0.98 Urinalysis showed 2+ protein 1+ ketones and moderate blood. Cordarone was pre sent not infected. 04/04/2022 Patient is currently lying in bed. Awake alert and oriented and feeling better today. Patient was febrile overnight. Continued on IV antibiotics. Heart rate is better controlled and also on Cardizem drip. Cardiology is on board. Continue with torsemide. Leg swelling is still present and denied any nausea vomiting abdominal pain or diarrhea. Laboratory test showed WBC 6.3 hemoglobin 12.9 and platelets 173 Sodium 134 potassium 4.0 chloride 104 bicarb is 23 BUN 28 and creatinine 1.81 and calcium 8.0 04/05/2022 Patient is currently sitting in the scale comfortably. Awake alert and oriented x3. Denies any chest pain or shortness of breath. Still having bilateral leg swelling. Also remains in atrial fibrillation with rapid regular rate with heart rate abov e 100. Metoprolol dose increased to 100 mg daily. Patient is also on torsemide. Laboratory data showed WBC 7.7 hemoglobin 12.4 and platelets 203 BUN 30 and creatinine 1.51. Patient is also on antibiotics in the form of ceftriaxone and azithromycin. Cardiology is on board. Torsemide is on hold. 04/06/2022 Patient is currently lying in the bed. Awake alert and oriented x3. Breathing status is better. No complaints of chest pain or shortness of breath. Bilateral lower extremities are Osmany wrapped. Heart rate is better controlled. Continued on metoprolol. Digoxin was added. Follow-up renal function. Torsemide is on hold. Cardiology is following. 04/07/2022 Patient is resting in the bed comfortably. No complaints of chest pain or shortness of breath. Repeat chest x-ray yesterday showed chronic changes with no evidence for acute pulmonary disease. Blood cultures grew Bacillus species. Not anthresis. Heart rate is better controlled. Currently on metoprolol and digoxin. Due to worsening renal function nephrology will be consulted. 04/08/2022 Patient is resting in bed. Awake alert and oriented x3. No complaints of chest pain or shortness of breath patient did have decreased urine output yesterday and was given IV fluid boluse.. Renal function improved with creatinine level 2.1 today. Patient complains of hiccups this morning. Patient denied any nausea or vomiting abdominal pain or diarrhea. Continued on antibiotics and off ceftriaxone azithromycin. Nephrology and cardiology on board. 04/09/2022 Patient is seen this am and at the bedside. Patient is being followed by nephrology and cardiology. Kidney functions improving and blood pressure is improved as well. Continued on 4L via NC and denies any worsening shortness of breath. Patient is afebrile and denies chest pain or palpitations. Patient is tolerating diet with no reports of nausea or vomiting noted. PT following recommending ecf and case management is following and awaiting insurance auth. 04/10/2022 Patient is seen in follow up this morning and at the bedside and has concerns of patient going to ecf as he is extremely weak and also more fatigued today. Patient is lethargic, but arousable. Falls asleep easily. No Narcotics or STRETCHER AND DRIER agents given. Patient did receive a norco a few days ago. Patient with lower extremity weakness and swelling noted. Patient is continued on 4L via NC and is afebrile. Will get a chest xray, urinalysis, dig level, and creatinine kinase. Will also obtain ct brain. Review of systems: Constitutional: reports of fatigue, fever, or chills Cardiovascular: No reports of chest pain or palpitations Respiratory: No reports of worsening shortness of breath or cough GI: No reports of nausea, vomiting, or diarrhea : No reports of dysuria or retention Neurovascular: reports of generalized weakness All medications have been reviewed Active Medications Acetaminophen (Acetaminophen Tab 325 Mg Tab) 650 mg PO Q6HR PRN PRN Reason: Fever and/ or Mild Pain Last Admin: 04/11/22 04:56 Dose: 650 mg Albuterol/Ipratropium (Ipratropium-Albuterol 3 Ml Neb) 3 ml INHALATION RT-Q4H PRN PRN Reason: shortness of breath Digoxin (Digoxin 125 Mcg Tab) 125 mcg PO DAILY REPLACED BY [facility] Last Admin: 04/10/22 09:33 Dose: 125 mcg Ergocalciferol (Ergocalciferol 1,250 Mcg (50,000 Iu) Capsule) 1,250 mcg PO Q30D REPLACED BY [facility] Folic Acid (Folic Acid 1 Mg Tab) 1 mg PO DAILY@1200 REPLACED BY [facility] Losartan Potassium (Losartan 25 Mg Tab) 25 mg PO DAILY REPLACED BY [facility] Last Admin: 04/10/22 09:33 Dose: 25 mg Metoclopramide HCl (Metoclopramide 5 Mg Tab) 5 mg PO TID PRN PRN Reason: Dyspepsia Last Admin: 04/07/22 20:46 Dose: 5 mg Metoprolol Succinate (Metoprolol Succinate (Er) 100 Mg Tab.Er.24h) 100 mg PO DAILY REPLACED BY [facility] Last Admin: 04/10/22 09:33 Dose: 100 mg Miscellaneous Information (Pneumonia Protocol Utilized 1 Each Misc) 1 each PO ONCE PRN PRN Reason: Per Protocol Multivitamins (Multivitamins, Thera 1 Each Tab) 1 each PO DAILY@1200 REPLACED BY [facility] Potassium Citrate (Potassium Citrate 10 Meq Tablet.Er) 10 meq PO DAILY REPLACED BY [facility] Last Admin: 04/10/22 09:33 Dose: 10 meq Rivaroxaban (Rivaroxaban 20 Mg Tab) 20 mg PO W/SUPPER REPLACED BY [facility]; Protocol Last Admin: 04/10/22 17:08 Dose: 20 mg Tamsulosin HCl (Tamsulosin 0.4 Mg Cap.Er.24h) 0.4 mg PO PC-BRKFST REPLACED BY [facility] Last Admin: 04/10/22 09:33 Dose: 0.4 mg Thiamine HCl (Thiamine 100 Mg Tab) 100 mg PO DAILY@1200 REPLACED BY [facility] PHYSICAL EXAMINATION: Patient is lying in the bed asleep, lethargic and arousable, falls asleep quickly, weak.. HEENT: Normocephalic. Neck is supple. Pupils reactive. Nostrils clear. Oral cavity is moist. Neck reveals no JVD, carotid bruits, or thyromegaly. CHEST EXAMINATION: Trachea is central. Symmetrical expansion. Bibasilar diminished sounds and no wheeze. CARDIAC: S1, S2 muffled ABDOMEN: Soft. non-tender, obese, Bowel sounds normal. No organomegaly. No abdominal bruits. Extremities: 2+ bilateral pedal edema. No clubbing or cyanosis Neurologically asleep although arousable, more lethargic today, unable to completely assess, diffusely weak Skin: No rash or skin lesions. Psychiatric: Cooperative. Non-suicidal Musculoskeletal: No joint swelling or deformity. Normal range of motion while in bed.. Assessment: Acute hypoxic respiratory failure secondary to pneumonia and CHF Paroxysmal atrial fibrillation with rapid ventricular rate. On anticoagulant with xarelto home. Rate controlled with metoprolol and digoxin Bilateral pneumonia. Likely community-acquired sepsis secondary to pneumonia mild Acute CHF likely precipitated by rapid ventricular rate. EF 35%. Bilateral chronic lower extremity swelling. Acute kidney injury. Likely prerenal. Possible component of retention is also being considered. improving Obesity with BMI 39.5 COPD not in exacerbation GERD Hypertension DVT prophylaxis with patient is already on xarelto Plan: Recommend to continue with current medications and management with cardiology and nephrology following. Patient is planning for ECF due to weakness and insurance has requested peer to peer and was approved. Patient is more lethargic and weak today on exam and will obtain ct brain, chest xray, creatine kinase, basic labs and digoxin level, also urinalysis with culture Continue cardiac medications including xarelto PT/OT recommending ECF and case management following Recommend close outpatient follow up with nephrology and cardiology Continue to hold diuretics (torsemide) for the next 3-4 days and then slowly resume Due to multiple complex medical issues, prognosis is guarded The impression and plan of care has been dictated by Rasheeda Hernandez, Nurse Practitioner as directed. Dr. Awais MD I have performed a history and examination and MDM of this patient, discussed the same with the dictator, and agree with the dictator's assessment and plan as written ,documented as a scribe. Based on total visit time, I have performed more than 50% of the visit. Objective - Vital Signs Vital signs: Vital Signs Temp 98.5 F 04/10/22 12:00 Pulse 90 04/10/22 12:00 Resp 20 04/10/22 12:00 BP 119/59 04/10/22 12:00 Pulse Ox 93 L 04/10/22 12:00 FiO2 Intake & Output 04/09/22 04/10/22 04/10/22 18:59 06:59 18:59 Intake Total 520 180 Output Total 700 800 300 Balance -180 -800 -120 Intake: Oral 520 180 Output: Urine 700 800 300 Straight 300 Other: Voiding Method Indwelling Catheter Indwelling Catheter Indwelling Catheter # Bowel Movements 1 - Labs CBC & Chem 7: 04/09/22 07:21 04/10/22 10:15 Labs: Abnormal Lab Results - Last 24 Hours (Table) 04/09/22 04/09/22 04/10/22 Range/Units 16:33 20:15 10:15 BUN 50 H (9-20) mg/dL Glucose 128 H (74-99) mg/dL POC Glucose (mg/dL) 131 H 161 H (70-110) mg/dL Calcium 8.3 L (8.4-10.2) mg/dL Microbiology - Last 24 Hours (Table) 04/03/22 10:15 Blood Culture - Final Blood No Growth after 144 hours
[2022-04-11 09:30] LABS: Basophils % (A) 0 %; Eosinophils # (A) 0.1 k/uL (0-0.7); Eosinophils % (A) 1 %; HCT 37.3 % (39.0-53.0); HGB 11.4 gm/dL (13.0-17.5); Hypochromasia Slight; Lymphocytes # (A) 0.6 k/uL (1.0-4.8); Lymphocytes % (A) 8 %; MCH 30.5 pg (25.0-35.0); MCHC 30.6 g/dL (31.0-37.0); MCV 99.6 fL (80.0-100.0); Mean Platelet Volume 8.1; Monocytes # (A) 0.8 k/uL (0-1.0); Monocytes % (A) 11 %; Neutrophils # (A) 5.7 k/uL (1.3-7.7); Neutrophils % (A) 78 %; Platelet Count 272 k/uL (150-450); RBC 3.75 m/uL (4.30-5.90); WBC 7.3 k/uL (3.8-10.6)
[2022-04-11] MEDS: TAMSULOSIN 0.4 MG CAP.ER.24H PO SCH (09:36)
[2022-04-11] MEDS: DIGOXIN 125 MCG TAB PO SCH (09:36)
[2022-04-11] MEDS: LOSARTAN 25 MG TAB PO SCH (09:36)
[2022-04-11] MEDS: METOPROLOL SUCCINATE (ER) 100 MG TAB.ER.24H PO SCH (09:36)
[2022-04-11] MEDS: POTASSIUM CITRATE 10 MEQ TABLET.ER PO SCH (09:36)
[2022-04-11 10:04] LABS: Albumin 2.6 g/dL (3.5-5.0); Calcium 8.3 mg/dL (8.4-10.2); Potassium 4.7 mmol/L (3.5-5.1); Total Bilirubin 0.4 mg/dL (0.2-1.3); Total Protein 6.1 g/dL (6.3-8.2)
--- NOTE | 2022-04-11 10:07 | P.CONS ---
History of Present Illness - Reason for Consult Consult date: 04/11/22 wound care - History of Present Illness This is an 86-year-old patient with a past medical history significant for atrial fibrillation, congestive heart failure, COPD, GERD, hypertension, pneumonia, vascular disease, venous insufficiency, bilateral leg lymphedema. Patient is being seen by the wound care center for blistering to bilateral calfs. Patient has erythema noted to bilateral cast with small blistering. Patient states that the ulcerations come and go. He typically wraps his legs daily with the help of his . Review Of Systems: Constitutional: No fever, no chills, no night sweats. No weight change. No weakness, fatigue or lethargy. No daytime sleepiness. Integumentary:reports wounds, no lesions. No rash or pruritus. No unusual bruising. No change in hair or nails. Physical exam: General Appearance: Alert, cooperative, no distress, appears stated age. Skin: See HPI all other Skin color, texture, tugor normal, no rashes or lesions. Neurologic: Alert oriented x3 Assessment: 1. Chronic venous hypertension with inflammation and ulceration of bilateral lower extremities 2. Nonhealing ulceration Limited to skin breakdown left lower extremity 3. Nonhealing ulceration Limited to skin breakdown right lower extremity 4. Venous insufficiency Plan: 1. Apply triad to the reddened area wrap with Osmany wrap daily. Thank you for the consultation any questions please contact the wound care center DNP note has been reviewed and discussed with Dr. Bartholomew and the impression and plan of care has been directed as dictated. Past Medical History Past Medical History: Atrial Fibrillation, Heart Failure, COPD, GERD/Reflux, Hypertension, Pneumonia, Vascular Disorder Additional Past Medical History / Comment(s): Recently seen by PCP on 04/02/22 for worsening cough, pt on antibiotic d/t tooth infection, venous insufficiency, bilateral leg lymphedema/wrapped spouse states past sores on bilateral feet but not at this time, History of Any Multi-Drug Resistant Organisms: None Reported Past Surgical History: Orthopedic Surgery Additional Past Surgical History / Comment(s): R elbow injury with surgery Past Anesthesia/Blood Transfusion Reactions: No Reported Reaction Past Psychological History: No Psychological Hx Reported Additional Psychological History / Comment(s): Pt resides with his spouse. He has a walker but does not use it. He is fairly independent. Smoking Status: Former smoker Past Alcohol Use History: Rare Additional Past Alcohol Use History / Comment(s): Pt started smoking in 1952 and quit in 1981 Past Drug Use History: None Reported - Past Family History Father Family Medical History: Congestive Heart Failure (CHF) Additional Family Medical History / Comment(s): Father lived to be 88/89yrs old Mother Family Medical History: Cancer Additional Family Medical History / Comment(s): Leukemia Medications and Allergies Home Medications Medication Instructions Recorded Confirmed Type Amoxic-Pot Clav 875-125Mg 1 tab PO Q12HR 04/03/22 04/03/22 History [Augmentin 875-125] Ergocalciferol [Vitamin D2 (1250 1,250 mcg PO Q30D 04/03/22 04/03/22 History Mcg = 92484 Iu)] Losartan Potassium 100 mg PO DAILY 04/03/22 04/03/22 History Metoprolol Succinate (ER) [Toprol 75 mg PO DAILY 04/03/22 04/03/22 History Xl] Potassium Citrate [Potassium 10 meq PO DAILY 04/03/22 04/03/22 History Citrate ER] Rivaroxaban [Xarelto] 20 mg PO W/SUPPER 04/03/22 04/03/22 History Torsemide [Demadex] 20 mg PO DAILY 04/03/22 04/03/22 History Allergies Allergy/AdvReac Type Severity Reaction Status Date / Time No Known Allergies Allergy Verified 04/03/22 11:04 Physical Exam Vitals: Vital Signs Temp Pulse Resp BP Pulse Ox 04/11/22 03:11 99.4 F 104 H 16 131/59 95 04/10/22 23:17 98.2 F 99 20 177/81 98 04/10/22 20:00 98.2 F 88 18 172/74 96 04/10/22 16:22 98.5 F 95 20 165/89 96 04/10/22 12:00 98.5 F 90 20 119/59 93 L Intake and Output 04/10/22 04/11/22 04/11/22 22:59 06:59 14:59 Intake Total 0 180 Output Total 700 1100 Balance -700 -1100 180 Intake: Oral 0 180 Output: Urine 700 1100 Straight 400 Other: Voiding Method Indwelling Catheter Indwelling Catheter Results CBC & Chem 7: 04/11/22 08:59 04/10/22 10:15 Labs: Abnormal Lab Results - Last 24 Hours (Table) 04/10/22 04/10/22 04/11/22 Range/Units 10:15 16:30 08:59 RBC 3.75 L (4.30-5.90) m/uL Hgb 11.4 L (13.0-17.5) gm/dL Hct 37.3 L (39.0-53.0) % MCHC 30.6 L (31.0-37.0) g/dL Lymphocytes # 0.6 L (1.0-4.8) k/uL BUN 50 H (9-20) mg/dL Glucose 128 H (74-99) mg/dL Calcium 8.3 L (8.4-10.2) mg/dL Urine Protein 1+ H (Negative) Urine Blood Large H (Negative) Ur Leukocyte Esterase Moderate H (Negative) Urine RBC 21 H (0-5) /hpf Urine WBC 7 H (0-5) /hpf Uric Acid Crystals Few H (None) /hpf Urine Mucus Occasional H (None) /hpf Assessment and Plan (1) Chronic venous hypertension w/ulcer and inflammation involv both sides Current Visit: Yes Status: Acute Code(s): I87.333 - CHRONIC VENOUS HTN W ULCER AND INFLAM OF BILATERAL LOW EXTRM; L97.919 - NON-PRS CHRONIC ULC UNSP PRT OF R LOW LEG W UNSP SEVERITY; L97.929 - NON-PRS CHRONIC ULC UNSP PRT OF L LOW LEG W UNSP SEVERITY SNOMED Code(s): 629521471 (2) Non-pressure chronic ulcer of left calf limited to breakdown of skin Current Visit: Yes Status: Acute Code(s): L97.221 - NON-PRS CHRONIC ULCER OF LEFT CALF LIMITED TO BRKDWN SKIN SNOMED Code(s): 35778883932376861 (3) Non-pressure chronic ulcer of right calf limited to breakdown of skin Current Visit: Yes Status: Acute Code(s): L97.211 - NON-PRS CHRONIC ULCER OF RIGHT CALF LIMITED TO BRKDWN SKIN SNOMED Code(s): 60906761703578118 (4) Venous insufficiency Current Visit: Yes Status: Acute Code(s): I87.2 - VENOUS INSUFFICIENCY (CHRONIC) (PERIPHERAL) SNOMED Code(s): 18551952
[2022-04-11] MEDS ORDERED: HYDROPHILIC CREAM 180 GM TUBE TOPICAL SCH (11:00)
[2022-04-11 12:49] VITALS: BMI 32.0
[2022-04-11] MEDS: MULTIVITAMINS, THERA 1 EACH TAB PO SCH (14:03)
[2022-04-11] MEDS: FOLIC ACID 1 MG TAB PO SCH (14:03)
[2022-04-11] MEDS: THIAMINE 100 MG TAB PO SCH (14:03)
--- NOTE | 2022-04-11 14:34 | CT ---
EXAMINATION TYPE: CT ChestAbdPelvis wo con DATE OF EXAM: 04/11/2022 INDICATION: Tracheal deviation COMPARISON: Chest x-ray 04/10/2022 CT DLP: 1411.8 mGycm CONTRAST: Performed without Oral Contrast and , patient injected with mL of . TECHNIQUE: Axial images at 5 mm thick sections. Reconstructed images in the coronal plane. Delayed images through the kidneys. FINDINGS: CT CHEST: Tracheobronchial tree appears unremarkable. Some tortuosity of the trachea is noted. No und erlying mass however is evident. No suspicious hilar masses. There is a small to moderate pericardial effusion present. Small bilateral pleural effusions are pres ent. Portion of the thyroid visualized is normal. No suspicious lung nodules or focal infiltrates are present. No enlarged mediastinal or hilar adenopathy is evident. The ascending aorta diameter at the level of the main pulmonary artery is 4.2 cm. The main pulmonary artery diameter at the bifurcation is 3.[address] ABDOMEN: Liver: Normal Spleen: Normal Pancreas: Normal Adrenal glands: The adrenal glands are normal. Gallbladder: Not identified. Kidneys: No masses are evident. No hydronephrosis is present. Small hypodense areas are within the bilateral renal cortex may be small renal cysts. There may be some calcification within the posterior lateral left kidney without hydronephrosis. No hydroureter is evident. Punctate calcifications in th e lower pole right kidney. Delayed images were obtained through the kidneys, which remain unremarkab le. Aorta: Vascular calcification is within the aorta. Inferior vena cava: Normal. CT PELVIS: There may be a contusion and subcutaneous tissue over the right lateral hip region. Loops of bowel within the abdomen and pelvis are normal. Study is performed without oral contrast limiting bowel evaluation. Appendix: Not identified. No dilated tubular structure or inflammatory change is evident. Urinary bladder: Decompressed with Lynn catheter. Genitourinary structures: Prostate appears normal Osseous structures: Sclerotic area along the medial left iliac wing. No suspicious lytic lesions are identified. IMPRESSIONS: 1. Small to moderate pericardial effusion. 2. Clinical consideration for a contusion of the lateral right subcutaneous tissues is recommended. 3. Nonobstructing renal calcification. 4. Mild tortuosity of the trachea with no underlying mass is identified.
[2022-04-11] MEDS: IPRATROPIUM-ALBUTEROL 3 ML NEB INHALATION SCH ×2 (16:13→19:38)
--- NOTE | 2022-04-11 16:18 | P.PN ---
Subjective Progress Note Date: 04/11/22 Patient is a 86-year-old male with a known history of paroxysmal atrial fibrillation on anticoagulation with xarelto, COPD, GERD, hypertension and previous history of smoking and also chronic lymphedema of the legs bilaterally presents to ER with complaints of generalized weakness. Patient is also having shortness of breath getting worse for the past 2 days. No complaints of chest pain. Patient was hypoxic with pulse ox 88% on room air on admission. Patient was also febrile and tachycardic on admission. T-max went up to 102.8. Denied any nausea or vomiting. No diarrhea. No headache or dizziness or lightheadedness. Patient also having worsening leg swelling. Chest x-ray showed low lung volumes and generalized hazy appearance which could represent atelectasis., Pneumonia or pulmonary edema. EKG showed atrial fibrillation with rapid ventricular rate Laboratory data showed WBC 7.9 hemoglobin 13.2 and platelets 192 INR 1.3, sodium 134 potassium 3.9, chloride 100 BUN 23 and creatinine 1.55 CKs 738. Liver is not elevated. ProBNP 2700 troponin 1 negative., TSH 0.16 and free T4 within normal limits at 0.98 Urinalysis showed 2+ protein 1+ ketones and moderate blood. Cordarone was pre sent not infected. 04/04/2022 Patient is currently lying in bed. Awake alert and oriented and feeling better today. Patient was febrile overnight. Continued on IV antibiotics. Heart rate is better controlled and also on Cardizem drip. Cardiology is on board. Continue with torsemide. Leg swelling is still present and denied any nausea vomiting abdominal pain or diarrhea. Laboratory test showed WBC 6.3 hemoglobin 12.9 and platelets 173 Sodium 134 potassium 4.0 chloride 104 bicarb is 23 BUN 28 and creatinine 1.81 and calcium 8.0 04/05/2022 Patient is currently sitting in the scale comfortably. Awake alert and oriented x3. Denies any chest pain or shortness of breath. Still having bilateral leg swelling. Also remains in atrial fibrillation with rapid regular rate with heart rate abov e 100. Metoprolol dose increased to 100 mg daily. Patient is also on torsemide. Laboratory data showed WBC 7.7 hemoglobin 12.4 and platelets 203 BUN 30 and creatinine 1.51. Patient is also on antibiotics in the form of ceftriaxone and azithromycin. Cardiology is on board. Torsemide is on hold. 04/06/2022 Patient is currently lying in the bed. Awake alert and oriented x3. Breathing status is better. No complaints of chest pain or shortness of breath. Bilateral lower extremities are Osmany wrapped. Heart rate is better controlled. Continued on metoprolol. Digoxin was added. Follow-up renal function. Torsemide is on hold. Cardiology is following. 04/07/2022 Patient is resting in the bed comfortably. No complaints of chest pain or shortness of breath. Repeat chest x-ray yesterday showed chronic changes with no evidence for acute pulmonary disease. Blood cultures grew Bacillus species. Not anthresis. Heart rate is better controlled. Currently on metoprolol and digoxin. Due to worsening renal function nephrology will be consulted. 04/08/2022 Patient is resting in bed. Awake alert and oriented x3. No complaints of chest pain or shortness of breath patient did have decreased urine output yesterday and was given IV fluid boluse.. Renal function improved with creatinine level 2.1 today. Patient complains of hiccups this morning. Patient denied any nausea or vomiting abdominal pain or diarrhea. Continued on antibiotics and off ceftriaxone azithromycin. Nephrology and cardiology on board. 04/09/2022 Patient is seen this am and at the bedside. Patient is being followed by nephrology and cardiology. Kidney functions improving and blood pressure is improved as well. Continued on 4L via NC and denies any worsening shortness of breath. Patient is afebrile and denies chest pain or palpitations. Patient is tolerating diet with no reports of nausea or vomiting noted. PT following recommending ecf and case management is following and awaiting insurance auth. 04/10/2022 Patient is seen in follow up this morning and at the bedside and has concerns of patient going to ecf as he is extremely weak and also more fatigued today. Patient is lethargic, but arousable. Falls asleep easily. No Narcotics or [employer]TR[employer] agents given. Patient did receive a norco a few days ago. Patient with lower extremity weakness and swelling noted. Patient is continued on 4L via NC and is afebrile. Will get a chest xray, urinalysis, dig level, and creatinine kinase. Will also obtain ct brain. 04/11/2022 Patient seen and evaluated and follow-up this morning with and daughter at the bedside and patient continues to be lethargic although is a more awake today than yesterday although continues to fatigue easily. Patient had CT of the brain yesterday which showed no acute intracranial process with the pituitary fossa fullness which could represent an underlying pituitary lesion such as a macroadenoma and consider MRI with nonspecific white matter changes likely secon carmela to chronic small vessel ischemic disease. Will consult neurology and appreciate input and recommendations. Patient also had a chest x-ray which showed persistent cardiomegaly and exam was rotated with some prominence of the right hilar region suspect underlying aortic ectasia with tracheal deviation recommending CT. CT abdomen chest will be ordered and pending. Will also obtain urine culture and start the patient on Zosyn, DuoNeb treatments. Patient is afebrile denies chest pain or worsening shortness of breath. Patient continues to be extremely weak and recommend PT/OT evaluation daily. Review of systems: Constitutional: reports of fatigue, fever, or chills Cardiovascular: No reports of chest pain or palpitations Respiratory: No reports of worsening shortness of breath or cough GI: No reports of nausea, vomiting, or diarrhea : No reports of dysuria or retention Neurovascular: reports of generalized weakness All medications have been reviewed Active Medications Acetaminophen (Acetaminophen Tab 325 Mg Tab) 650 mg PO Q6HR PRN PRN Reason: Fever and/ or Mild Pain Last Admin: 04/11/22 04:56 Dose: 650 mg Albuterol/Ipratropium (Ipratropium-Albuterol 3 Ml Neb) 3 ml INHALATION RT-Q4H PRN PRN Reason: shortness of breath Albuterol/Ipratropium (Ipratropium-Albuterol 3 Ml Neb) 3 ml INHALATION RT-QID [facility] Digoxin (Digoxin 125 Mcg Tab) 125 mcg PO DAILY [facility] Last Admin: 04/11/22 09:36 Dose: 125 mcg Ergocalciferol (Ergocalciferol 1,250 Mcg (50,000 Iu) Capsule) 1,250 mcg PO Q30D [facility] Folic Acid (Folic Acid 1 Mg Tab) 1 mg PO DAILY@1200 [facility] Last Admin: 04/11/22 14:03 Dose: Not Given Piperacillin Sod/Tazobactam (Sod 3.375 gm/ Sodium Chloride) 100 mls @ 25 mls/hr IVPB Q8HR [facility]; Protocol Losartan Potassium (Losartan 25 Mg Tab) 25 mg PO DAILY [facility] Last Admin: 04/11/22 09:36 Dose: 25 mg Metoclopramide HCl (Metoclopramide 5 Mg Tab) 5 mg PO TID PRN PRN Reason: Dyspepsia Last Admin: 04/07/22 20:46 Dose: 5 mg Metoprolol Succinate (Metoprolol Succinate (Er) 100 Mg Tab.Er.24h) 100 mg PO DAILY [facility] Last Admin: 04/11/22 09:36 Dose: 100 mg Miscellaneous Information (Pneumonia Protocol Utilized 1 Each Misc) 1 each PO ONCE PRN PRN Reason: Per Protocol Multi-Ingred Cream/Lotion/Oil/Oint (Hydrophilic Cream 180 Gm Tube) 1 applic TOPICAL DAILY [facility]; Protocol Multivitamins (Multivitamins, Thera 1 Each Tab) 1 each PO DAILY@1200 [facility] Last Admin: 04/11/22 14:03 Dose: Not Given Potassium Citrate (Potassium Citrate 10 Meq Tablet.Er) 10 meq PO DAILY [facility] Last Admin: 04/11/22 09:36 Dose: 10 meq Rivaroxaban (Rivaroxaban 20 Mg Tab) 20 mg PO W/SUPPER [facility]; Protocol Last Admin: 04/10/22 17:08 Dose: 20 mg Tamsulosin HCl (Tamsulosin 0.4 Mg Cap.Er.24h) 0.4 mg PO PC-BRKFST [facility] Last Admin: 04/11/22 09:36 Dose: 0.4 mg Thiamine HCl (Thiamine 100 Mg Tab) 100 mg PO DAILY@1200 [facility] Last Admin: 04/11/22 14:03 Dose: Not Given PHYSICAL EXAMINATION: Patient is lying in the bed asleep, lethargic more awake today, falls asleep quickly, weak.. HEENT: Normocephalic. Neck is supple. Pupils reactive. Nostrils clear. Oral cavity is moist. Neck reveals no JVD, carotid bruits, or thyromegaly. CHEST EXAMINATION: Trachea is central. Symmetrical expansion. Bibasilar diminished sounds and no wheeze. CARDIAC: S1, S2 muffled ABDOMEN: Soft. non-tender, obese, Bowel sounds normal. No organomegaly. No abdominal bruits. Extremities: 2+ bilateral pedal edema. No clubbing or cyanosis Neurologically asleep although arousable, slightly more awake today, unable to completely assess, diffusely weak Skin: No rash or skin lesions. Psychiatric: Cooperative. Non-suicidal Musculoskeletal: No joint swelling or deformity. Normal range of motion while in bed.. Assessment: Acute hypoxic respiratory failure secondary to pneumonia and CHF Paroxysmal atrial fibrillation with rapid ventricular rate. Possible pituitary lesion as noted on CT Bilateral pneumonia. Likely community-acquired sepsis secondary to pneumonia mild Acute CHF likely precipitated by rapid ventricular rate. EF 35%. Bilateral chronic lower extremity swelling. Acute kidney injury. Likely prerenal. Possible component of retention is also being considered. improving Obesity with BMI 39.5 COPD, acute exacerbation GERD Hypertension DVT prophylaxis with patient is already on xarelto Plan: Recommend to continue with current medications and management with cardiology and nephrology following. Patient underwent CT of the brain and chest x-ray as mentioned above and will consult neurology for this questionable pituitary lesion noted on CT and chest x-ray also showed tracheal deviation was was not seen on previous exams and will get a CT abdomen chest which is currently pending. Patient with concerns for infectious process, possibly pneumonia and will initiate Zosyn and await cultures and also have added a urine culture which is pending. Recommend DuoNeb treatments PT/OT recommending ECF and case management following Continue to hold diuretics (torsemide) for the next 3-4 days and then slowly resume Follow-up with repeat labs and neurology has been consulted and appreciate input and recommendations. and daughter at the bedside and questions and concerns were answered to the best of our ability. Due to multiple complex medical issues, overall prognosis is extremely guarded The impression and plan of care has been dictated by Rasheeda Hernandez, Nurse Practitioner as directed. Dr. Awais MD I have performed a history and examination and MDM of this patient, discussed the same with the dictator, and agree with the dictator's assessment and plan as written ,documented as a scribe. Based on total visit time, I have performed more than 50% of the visit. Objective - Vital Signs Vital signs: Vital Signs Temp 98.4 F 04/11/22 12:18 Pulse 93 04/11/22 14:00 Resp 20 04/11/22 14:00 BP 158/82 04/11/22 12:18 Pulse Ox 95 04/11/22 12:18 FiO2 Intake & Output 04/10/22 04/11/22 04/11/22 18:59 06:59 18:59 Intake Total 180 180 Output Total 1000 1100 400 Balance -820 -1100 -220 Weight 95.5 kg Intake: Oral 180 180 Output: Urine 1000 1100 400 Straight 400 Other: Voiding Method Indwelling Catheter Indwelling Catheter Indwelling Catheter - Labs CBC & Chem 7: 04/11/22 08:59 04/11/22 08:59 Labs: Abnormal Lab Results - Last 24 Hours (Table) 04/10/22 04/11/22 04/11/22 Range/Units 16:30 08:59 08:59 RBC 3.75 L (4.30-5.90) m/uL Hgb 11.4 L (13.0-17.5) gm/dL Hct 37.3 L (39.0-53.0) % MCHC 30.6 L (31.0-37.0) g/dL Lymphocytes # 0.6 L (1.0-4.8) k/uL BUN 42 H (9-20) mg/dL Glucose 127 H (74-99) mg/dL Calcium 8.3 L (8.4-10.2) mg/dL AST 65 H (17-59) U/L ALT 88 H (4-49) U/L Total Protein 6.1 L (6.3-8.2) g/dL Albumin 2.6 L (3.5-5.0) g/dL Urine Protein 1+ H (Negative) Urine Blood Large H (Negative) Ur Leukocyte Esterase Moderate H (Negative) Urine RBC 21 H (0-5) /hpf Urine WBC 7 H (0-5) /hpf Uric Acid Crystals Few H (None) /hpf Urine Mucus Occasional H (None) /hpf
[2022-04-11] MEDS: PIPERACILLIN-TAZOBACTAM 3.375 GM in SODIUM CHLORIDE 0.9% 100 ML IVPB SCH (16:27)
[2022-04-11] MEDS ORDERED: ENOXAPARIN 40 MG/0.4 ML SYRINGE SQ SCH (17:00)
[2022-04-11 17:37] LABS: Uric Acid 3.9 mg/dL (3.5-8.5)
[2022-04-11 17:59] LABS: C Reactive Protein 19.7 mg/dL (<1.0)
--- NOTE | 2022-04-11 18:45 | XR ---
EXAMINATION TYPE: XR cervical spine limited DATE OF EXAM: 04/11/2022 5:41 PM INDICATION: Patient age:Male; 86 years old; Reason for study: pain, fall; PHH. COMPARISON: None TECHNIQUE: The cervical spine was imaged in Frontal, lateral projections. FINDINGS: Slightly limited exam secondary to overlying soft tissues. The osseous structures show normal alignment without evidence of an acute fracture. There are osteoph ytes noted throughout the cervical spine on the anterior and lateral aspects of the vertebral bodies. The intervertebral disk spaces are slightly narrowed throughout the spine. Soft tissues are within n ormal limits. IMPRESSION: 1. No gross fracture or dislocation identified. 2. 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
--- NOTE | 2022-04-11 18:53 | XR ---
EXAMINATION TYPE: XR thoracic spine 2V DATE OF EXAM: 04/11/2022 5:41 PM INDICATION: Patient age:Male; 86 years old; Reason for study: pain, fall; PHH. COMPARISON: None TECHNIQUE: 2 views of the thoracic spine in Frontal and lateral projections. FINDINGS: Limited exam secondary to technique. Mild multilevel osteophyte formation and mild wedging of the thoracic spine. No evidence of acute fra cture. There is mild evidence of disk space narrowing and loss of vertebral body height anteriorly w ith wedging. Increased kyphotic alignment. This course of the arterial vasculature. IMPRESSION: 1. No acute osseous pathology. 2. [id number] multilevel disc degeneration changes. No gross fracture.
--- NOTE | 2022-04-11 18:54 | XR ---
EXAMINATION TYPE: XR lumbar spine 2 or 3V DATE OF EXAM: 04/11/2022 5:41 PM INDICATION: Patient age:Male; 86 years old; Reason for study: pain, fall; PHH. COMPARISON: None TECHNIQUE: Frontal, lateral and coned in L5-S1 lateral views of the spine. FINDINGS: Marginal osteophyte formation. Limited evaluation secondary to overlying soft tissues and u nderpenetration. No gross evidence of fracture. Atherosclerosis of the arterial vasculature. No evide nce of any acute osseous pathology. No evidence of loss of vertebral body height is seen. There is n ormal alignment of the lumbar vertebral bodies. No significant degeneration changes throughout the sp ine. IMPRESSION: 1. No gross evidence of fracture. 2. [id number] multilevel disc degeneration
[2022-04-11] MEDS: ACETAMINOPHEN IV (For NPO) 1,000 MG in EMPTY BAG 1 BAG IVPB PRN (20:07)
[2022-04-11] MEDS: HYDROPHILIC CREAM 180 GM TUBE TOPICAL SCH (20:12)
[2022-04-11] MEDS: ENOXAPARIN 100 MG/ML SYRINGE SQ SCH (20:49)
[2022-04-12] MEDS: PIPERACILLIN-TAZOBACTAM 3.375 GM in SODIUM CHLORIDE 0.9% 100 ML IVPB SCH ×3 (00:06→16:31)
[2022-04-12] MEDS: ACETAMINOPHEN IV (For NPO) 1,000 MG in EMPTY BAG 1 BAG IVPB PRN (04:19)
[2022-04-12] MEDS: IPRATROPIUM-ALBUTEROL 3 ML NEB INHALATION SCH ×4 (07:50→19:57)
--- NOTE | 2022-04-12 08:32 | P.CNNES ---
History of Present Illness Consult date: 04/11/22 Requesting physician: Rasheeda Hernandez Reason for Consult: Pituitary lesion History of Present Illness: Patient is a 86-year-old male came to the hospital by ambulance on 04/03/2022, and was diagnosed with atrial fibrillation with rapid ventricular rate, pneumonia, CHF and acute kidney injury. Patient was noted to be generalized weak, fatigued, lethargic but arousable. Patient was noted to fall easily asleep. Patient also has lower extremity weakness and swelling noted. All these symptoms prompted computed tomography scan of the head. Patient underwent computed tomography scan of the head on 04/10/2022 (yesterday) which revealed no acute intracranial process. Pituitary fossa fullness which could represent underlying pituitary lesion such as a macroadenoma. Consider MRI pituitary mass protocol for further evaluation. Nonspecific white matter changes likely secondary to chronic small vessel ischemic disease. I personally reviewed CT head, and agree with the findings. Chronic left sided subdural h ygroma, mainly involving the left parietal region. Patient not able to provide any history. Patient's later arrived, who provided with more detailed history. Patient has been cognitively intact, except for some age-related forgetfulness, but not anything more than she states herself. No history of dementia. She states that patient suffered from a fall in the bathroom, and his head almost fell into the toilet. She is not sure if he lost balance and fell, or if he slipped. Patient states that he did not pass out. Patient's mentions that this year he had fell a couple times, once in the garden, and once in the garage. Usually neighbors are there, who help him up. This time he fell in the bathroom, and she was not able to help him get up, therefore she called the ambulance and was brought to the hospital. Patient's states that she got him a walker but he is stubborn or reluctant to use it and does not use the walker. She is noticing that lately he has been getting difficulty to get into the car in his gait has been affected. He has been getting confused since then. Patient at present admits to having headache "really bad". He is otherwise not a "headache person" although lately he has mentioned to her that his head aches. At present patient hurts everywhere. When I asked, what part of his body hurts the most, he could not tell. Patient's blood test shows normal WBC hemoglobin 11.4, platelets 272. Electrolytes are normal, BUN 42 creatinine 1.03. AST mildly elevated 65 and ALT 88. UA shows moderate amount of leukocyte esterase and 7 WBC. Patient's TSH is slightly low 0.160, with normal free T4 0.98. Influenza screen and coronal virus PCR negative. Patient has history of hypertension, no diabetes. He quit smoking in 1959. He drinks wine very occasionally. Patient has been started on Xarelto. She also has COPD, GERD, hypertension and X tobacco use. She has chronic lymphedema of the legs. Review of Systems Complains of whole body pain. Back hurts, arms and legs hurts. Admits to having headache. Memory problems lately. Falls. All other review of systems reviewed and not able to be assessed despite asking the patient's on the patient's nurse. ROS unobtainable: due to mental status Past Medical History Past Medical History: Atrial Fibrillation, Heart Failure, COPD, GERD/Reflux, Hypertension, Pneumonia, Vascular Disorder Additional Past Medical History / Comment(s): Recently seen by PCP on 04/02/22 for worsening cough, pt on antibiotic d/t tooth infection, venous insufficiency, bilateral leg lymphedema/wrapped spouse states past sores on bilateral feet but not at this time, History of Any Multi-Drug Resistant Organisms: None Reported Past Surgical History: Orthopedic Surgery Additional Past Surgical History / Comment(s): R elbow injury with surgery Past Anesthesia/Blood Transfusion Reactions: No Reported Reaction Past Psychological History: No Psychological Hx Reported Additional Psychological History / Comment(s): Pt resides with his spouse. He has a walker but does not use it. He is fairly independent. Smoking Status: Former smoker Past Alcohol Use History: Rare Additional Past Alcohol Use History / Comment(s): Pt started smoking in 4 and quit in 1981 Past Drug Use History: None Reported - Past Family History Father Family Medical History: Congestive Heart Failure (CHF) Additional Family Medical History / Comment(s): Father lived to be 88/89yrs old Mother Family Medical History: Cancer Additional Family Medical History / Comment(s): Leukemia Medications and Allergies Home Medications Medication Instructions Recorded Confirmed Type Amoxic-Pot Clav 875-125Mg 1 tab PO Q12HR 04/03/22 04/03/22 History [Augmentin 875-125] Ergocalciferol [Vitamin D2 (1250 1,250 mcg PO Q30D 04/03/22 04/03/22 History Mcg = 87888 Iu)] Losartan Potassium 100 mg PO DAILY 04/03/22 04/03/22 History Metoprolol Succinate (ER) [Toprol 75 mg PO DAILY 04/03/22 04/03/22 History Xl] Potassium Citrate [Potassium 10 meq PO DAILY 04/03/22 04/03/22 History Citrate ER] Rivaroxaban [Xarelto] 20 mg PO W/SUPPER 04/03/22 04/03/22 History Torsemide [Demadex] 20 mg PO DAILY 04/03/22 04/03/22 History Allergies Allergy/AdvReac Type Severity Reaction Status Date / Time No Known Allergies Allergy Verified 04/03/22 11:04 Physical Examination - Vital Signs Vital Signs: Vital Signs Temp Pulse Pulse Resp BP BP Pulse Ox 04/11/22 12:18 98.4 F 94 20 158/82 95 04/11/22 08:00 99.3 F 93 88 18 135/78 94 L 04/11/22 03:11 99.4 F 104 H 16 131/59 95 04/10/22 23:17 98.2 F 99 20 177/81 98 04/10/22 20:00 98.2 F 88 18 172/74 96 04/10/22 16:22 98.5 F 95 20 165/89 96 Intake and Output 04/10/22 04/11/22 04/11/22 22:59 06:59 14:59 Intake Total 0 180 Output Total 700 1100 400 Balance -700 -1100 -220 Intake: Oral 0 180 Output: Urine 700 1100 400 Straight 400 Other: Voiding Method Indwelling Catheter Indwelling Catheter Indwelling Catheter Weight 95.5 kg Patient is an elderly male, in no acute distress. Patient is somewhat delirious, confused. He could not tell the current month although states the month is the second month and the year is "second". He knows that he is in [place], but when I asked the city, states it's [place]. He could not tell name of the current building he is in, although he knows name of the current president Mr. Morse. He knows name of his An[place]. Speech and language functions are normal. No aphasia or dysarthria. Attention, concentration and fund of knowledge is very limited. On cranial nerve examination, pupils are equal, round and reacting to light. He did not cooperate very well with visual field testing, although appears full, but he would point to the right or left side bending both sides were checked simultaneously. Some inconsistent responses. He does blink to visual threat bilaterally. Extraocular muscles are intact with no nystagmus. Face is symmetric, tongue protrudes to the midline. Palatal elevation and sensation could not be tested. His hearing is slightly decreased and shoulder shrug normal, facial sensation normal. On muscle strength testing, there is no pronator drift. 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 He did not cooperate with testing deltoid because of pain. Any movement of his lower extremities or upper body produced pain, appears to be pointing to the thoracic spine region. Patient is wiggling his right foot better than the left. His left foot is everted, which his believes is always like that. Patient was noted to have rhythmic tremor of the right thumb periodically. Deep tendon reflexes are symmetric (right/left) 1+ and plantars are downgoing bilaterally. Sensory to touch is equal. Cerebellar could not be tested because of diffuse pain. Tone could not be tested because patient has severe pain with movement of an any extremities. Appears slightly rigid because of pain. Gait not able to be tested On general examination, there is no carotid bruit or murmur, S1-S2 audible. Chest is clear on consultation. Abdomen is soft nontender. No organomegaly, bowel sounds present. Patient has Osmany wrap around his both feet and calves. He has peripheral edema. Left foot is everted. Results - Laboratory Findings CBC and BMP: 04/11/22 08:59 04/11/22 08:59 Abnormal Lab Findings: Abnormal Labs 04/03/22 04/03/22 04/03/22 10:04 10:04 10:04 WBC RBC 4.29 L Hgb Hct MCV MCHC Neutrophils # Lymphocytes # 0.7 L Lymphocytes # (Manual) Monocytes # 1.1 H PT INR Sodium 134 L BUN 23 H Creatinine 1.55 H Glucose 113 H POC Glucose (mg/dL) Calcium AST ALT Creatine Kinase 738 H Total Protein Albumin Procalcitonin 0.21 H TSH 0.160 L Urine Protein Urine Ketones Urine Blood Ur Leukocyte Esterase Urine RBC Urine WBC Uric Acid Crystals Urine Bacteria Hyaline Casts Urine Mucus 04/03/22 04/03/22 04/04/22 10:04 11:30 07:14 WBC RBC 3.94 L Hgb 12.9 L Hct 38.5 L MCV MCHC Neutrophils # Lymphocytes # Lymphocytes # (Manual) 0.76 L Monocytes # PT 13.6 H INR 1.3 H Sodium BUN Creatinine Glucose POC Glucose (mg/dL) Calcium AST ALT Creatine Kinase Total Protein Albumin Procalcitonin TSH Urine Protein 2+ H Urine Ketones 1+ H Urine Blood Moderate H Ur Leukocyte Esterase Urine RBC Urine WBC Uric Acid Crystals Urine Bacteria Rare H Hyaline Casts 3 H Urine Mucus Rare H 04/04/22 04/05/22 04/05/22 07:14 07:26 07:26 WBC RBC 4.06 L Hgb 12.4 L Hct MCV MCHC Neutrophils # Lymphocytes # 0.9 L Lymphocytes # (Manual) Monocytes # PT INR Sodium 135 L BUN 28 H 30 H Creatinine 1.81 H 1.51 H Glucose 103 H 117 H POC Glucose (mg/dL) Calcium 8.0 L 8.0 L AST ALT Creatine Kinase Total Protein Albumin Procalcitonin TSH Urine Protein Urine Ketones Urine Blood Ur Leukocyte Esterase Urine RBC Urine WBC Uric Acid Crystals Urine Bacteria Hyaline Casts Urine Mucus 04/07/22 04/07/22 04/08/22 06:59 06:59 07:42 WBC 11.7 H RBC 4.17 L 3.96 L Hgb 12.9 L 12.2 L Hct MCV MCHC Neutrophils # 10.0 H Lymphocytes # 0.6 L 0.5 L Lymphocytes # (Manual) Monocytes # PT INR Sodium BUN 46 H Creatinine 2.43 H Glucose 128 H POC Glucose (mg/dL) Calcium 8.2 L AST ALT Creatine Kinase Total Protein Albumin Procalcitonin TSH Urine Protein Urine Ketones Urine Blood Ur Leukocyte Esterase Urine RBC Urine WBC Uric Acid Crystals Urine Bacteria Hyaline Casts Urine Mucus 04/08/22 04/08/22 04/09/22 07:42 16:35 07:21 WBC RBC 3.89 L Hgb 11.9 L Hct MCV 100.5 H MCHC 30.4 L Neutrophils # Lymphocytes # 0.6 L Lymphocytes # (Manual) Monocytes # PT INR Sodium BUN 54 H Creatinine 2.11 H Glucose 124 H POC Glucose (mg/dL) 130 H Calcium 8.1 L AST ALT Creatine Kinase Total Protein Albumin Procalcitonin TSH Urine Protein Urine Ketones Urine Blood Ur Leukocyte Esterase Urine RBC Urine WBC Uric Acid Crystals Urine Bacteria Hyaline Casts Urine Mucus 04/09/22 04/09/22 04/09/22 07:25 11:26 16:33 WBC RBC Hgb Hct MCV MCHC Neutrophils # Lymphocytes # Lymphocytes # (Manual) Monocytes # PT INR Sodium BUN 59 H Creatinine 1.52 H Glucose 111 H POC Glucose (mg/dL) 116 H 131 H Calcium 8.3 L AST ALT Creatine Kinase Total Protein Albumin Procalcitonin TSH Urine Protein Urine Ketones Urine Blood Ur Leukocyte Esterase Urine RBC Urine WBC Uric Acid Crystals Urine Bacteria Hyaline Casts Urine Mucus 04/09/22 04/10/22 04/10/22 20:15 10:15 16:30 WBC RBC Hgb Hct MCV MCHC Neutrophils # Lymphocytes # Lymphocytes # (Manual) Monocytes # PT INR Sodium BUN 50 H Creatinine Glucose 128 H POC Glucose (mg/dL) 161 H Calcium 8.3 L AST ALT Creatine Kinase Total Protein Albumin Procalcitonin TSH Urine Protein 1+ H Urine Ketones Urine Blood Large H Ur Leukocyte Esterase Moderate H Urine RBC 21 H Urine WBC 7 H Uric Acid Crystals Few H Urine Bacteria Hyaline Casts Urine Mucus Occasional H 04/11/22 04/11/22 08:59 08:59 WBC RBC 3.75 L Hgb 11.4 L Hct 37.3 L MCV MCHC 30.6 L Neutrophils # Lymphocytes # 0.6 L Lymphocytes # (Manual) Monocytes # PT INR Sodium BUN 42 H Creatinine Glucose 127 H POC Glucose (mg/dL) Calcium 8.3 L AST 65 H ALT 88 H Creatine Kinase Total Protein 6.1 L Albumin 2.6 L Procalcitonin TSH Urine Protein Urine Ketones Urine Blood Ur Leukocyte Esterase Urine RBC Urine WBC Uric Acid Crystals Urine Bacteria Hyaline Casts Urine Mucus Assessment and Plan Assessment: * Altered mental status, probably due to acute delirium/metabolic encephalopathy due to reasons mentioned below. 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 * Acute hypoxic respiratory failure secondary to pneumonia and CHF * Paroxysmal atrial fibrillation with rapid ventricular rate, now on anticoagulation * Bilateral pneumonia * Sepsis * CHF * Acute kidney injury * Obesity * COPD * Hypertension Plan: * Patient has a pituitary mass. We will perform MRI of the pituitary gland with and without contrast, rule out tumor. Also MRI will rule out any CVA. * Patient is on Xarelto for stroke prevention related to atrial fibrillation. * X-ray of the thoracic, cervical and lumbar spine rule out fracture. * Consider bone scan for diffuse bone pain. * EEG rule out epileptiform activity * ESR, CRP, rheumatoid factor, uric acid, B6, A1c, B12, B1, MMA, folate, immune fixation electrophoresis. * Medical management as per IM and other specialties. * Neurology will follow. Thank you for the consult. Time with Patient: Greater than 30
[2022-04-12 08:35] LABS: Basophils % (A) 1 %; Eosinophils # (A) 0.1 k/uL (0-0.7); Eosinophils % (A) 2 %; HCT 39.8 % (39.0-53.0); HGB 12.6 gm/dL (13.0-17.5); Hypochromasia Moderate; Lymphocytes # (A) 0.5 k/uL (1.0-4.8); Lymphocytes % (A) 8 %; MCH 31.7 pg (25.0-35.0); MCHC 31.7 g/dL (31.0-37.0); MCV 100.1 fL (80.0-100.0); Mean Platelet Volume 7.8; Monocytes # (A) 0.6 k/uL (0-1.0); Monocytes % (A) 10 %; Neutrophils # (A) 5.2 k/uL (1.3-7.7); Neutrophils % (A) 80 %; Platelet Count 275 k/uL (150-450); RBC 3.98 m/uL (4.30-5.90); RDW 13.9 % (11.5-15.5); WBC 6.5 k/uL (3.8-10.6)
[2022-04-12] MEDS: TAMSULOSIN 0.4 MG CAP.ER.24H PO SCH (08:45)
[2022-04-12] MEDS: ENOXAPARIN 100 MG/ML SYRINGE SQ SCH ×2 (08:46→20:40)
[2022-04-12] MEDS: LOSARTAN 25 MG TAB PO SCH (08:46)
[2022-04-12] MEDS: DIGOXIN 125 MCG TAB PO SCH (08:46)
[2022-04-12] MEDS: METOPROLOL SUCCINATE (ER) 100 MG TAB.ER.24H PO SCH (08:46)
[2022-04-12] MEDS: POTASSIUM CITRATE 10 MEQ TABLET.ER PO SCH (08:47)
[2022-04-12 08:58] LABS: Calcium 8.7 mg/dL (8.4-10.2); Potassium 4.8 mmol/L (3.5-5.1)
--- NOTE | 2022-04-12 11:03 | P.PN ---
Subjective Patient is seen for follow-up for acute kidney injury and top of chronic kidney disease. 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 Serum creatinine had peaked at 2.4 and has decreased now to 1.1 mg/dL. Patient is status post IV fluids. Blood pressure was low and patient is maintained on Cozaar has been decreased Blood culture grew bacillus species Objective - Vital Signs Vital signs: Vital Signs Temp 97.6 F 04/12/22 08:36 Pulse 100 04/12/22 08:36 Resp 18 04/12/22 08:36 BP 137/89 04/12/22 08:36 Pulse Ox 99 04/12/22 03:51 FiO2 Intake & Output 04/11/22 04/12/22 04/12/22 18:59 06:59 18:59 Intake Total 180 Output Total 1000 700 Balance -820 -700 Weight 95.5 kg Intake: Oral 180 Output: Urine 1000 700 Other: Voiding Method Indwelling Catheter Indwelling Catheter # Voids 0 # Bowel Movements 0 - Exam Awake, comfortable, not in any acute distress Examination of the heart S1 and S2 Examination lungs bilateral breath sounds are heard Abdomen is soft nontender Examination of lower extremities shows 2+ edema bilaterally 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 - Labs CBC & Chem 7: 04/12/22 07:56 04/12/22 07:56 Labs: Abnormal Lab Results - Last 24 Hours (Table) 04/11/22 04/11/22 04/12/22 Range/Units 16:53 16:53 07:56 RBC 3.98 L (4.30-5.90) m/uL Hgb 12.6 L (13.0-17.5) gm/dL MCV 100.1 H (80.0-100.0) fL Lymphocytes # 0.5 L (1.0-4.8) k/uL ESR 103 H (0-15) mm/hr BUN (9-20) mg/dL Glucose (74-99) mg/dL C-Reactive Protein 19.7 H (<1.0) mg/dL 04/12/22 Range/Units 07:56 RBC (4.30-5.90) m/uL Hgb (13.0-17.5) gm/dL MCV (80.0-100.0) fL Lymphocytes # (1.0-4.8) k/uL ESR (0-15) mm/hr BUN 39 H (9-20) mg/dL Glucose 116 H (74-99) mg/dL C-Reactive Protein (<1.0) mg/dL Microbiology - Last 24 Hours (Table) 04/11/22 15:27 Urine Culture - Preliminary Urine,Catheterized Assessment and Plan Assessment: 1. Acute kidney injury associated with volume depletion and prerenal state in the setting of use of angiotensin receptor blockers and sepsis. Status post IV fluids. Blood pressure is improved 2. 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 History of COPD 4. History of cardiomyopathy, ejection fraction 35% 5. History of nephrolithiasis 6. Bacteremia with blood culture growing bacillus species, 1 out of 2. Final culture after 144 hours shows no growth. Plan: Continue Flomax Continue with low-dose Cozaar Encourage increased oral intake Avoid nephrotoxic agents
[2022-04-12] MEDS: THIAMINE 100 MG TAB PO SCH (12:09)
[2022-04-12] MEDS: MULTIVITAMINS, THERA 1 EACH TAB PO SCH (12:09)
[2022-04-12] MEDS: FOLIC ACID 1 MG TAB PO SCH (12:09)
[2022-04-12] MEDS: MORPHINE SULFATE 4 MG/ML SYRINGE IVP PRN ×2 (16:29→20:39)
[2022-04-12] MEDS: HYDROPHILIC CREAM 180 GM TUBE TOPICAL SCH (16:29)
[2022-04-12] MEDS: LORazepam 2 MG/ML INJ IV PRN (20:39)
[2022-04-12 21:33] VITALS: TEMP 98.7
--- NOTE | 2022-04-12 23:58 | P.PN ---
Subjective Progress Note Date: 04/12/22 Patient is a 86-year-old male with a known history of paroxysmal atrial fibrillation on anticoagulation with xarelto, COPD, GERD, hypertension and previous history of smoking and also chronic lymphedema of the legs bilaterally presents to ER with complaints of generalized weakness. Patient is also having shortness of breath getting worse for the past 2 days. No complaints of chest pain. Patient was hypoxic with pulse ox 88% on room air on admission. Patient was also febrile and tachycardic on admission. T-max went up to 102.8. Denied any nausea or vomiting. No diarrhea. No headache or dizziness or lightheadedness. Patient also having worsening leg swelling. Chest x-ray showed low lung volumes and generalized hazy appearance which could represent atelectasis., Pneumonia or pulmonary edema. EKG showed atrial fibrillation with rapid ventricular rate Laboratory data showed WBC 7.9 hemoglobin 13.2 and platelets 192 INR 1.3, sodium 134 potassium 3.9, chloride 100 BUN 23 and creatinine 1.55 CKs 738. Liver is not elevated. ProBNP 2700 troponin 1 negative., TSH 0.16 and free T4 within normal limits at 0.98 Urinalysis showed 2+ protein 1+ ketones and moderate blood. Cordarone was pre sent not infected. 04/04/2022 Patient is currently lying in bed. Awake alert and oriented and feeling better today. Patient was febrile overnight. Continued on IV antibiotics. Heart rate is better controlled and also on Cardizem drip. Cardiology is on board. Continue with torsemide. Leg swelling is still present and denied any nausea vomiting abdominal pain or diarrhea. Laboratory test showed WBC 6.3 hemoglobin 12.9 and platelets 173 Sodium 134 potassium 4.0 chloride 104 bicarb is 23 BUN 28 and creatinine 1.81 and calcium 8.0 04/05/2022 Patient is currently sitting in the scale comfortably. Awake alert and oriented x3. Denies any chest pain or shortness of breath. Still having bilateral leg swelling. Also remains in atrial fibrillation with rapid regular rate with heart rate abov e 100. Metoprolol dose increased to 100 mg daily. Patient is also on torsemide. Laboratory data showed WBC 7.7 hemoglobin 12.4 and platelets 203 BUN 30 and creatinine 1.51. Patient is also on antibiotics in the form of ceftriaxone and azithromycin. Cardiology is on board. Torsemide is on hold. 04/06/2022 Patient is currently lying in the bed. Awake alert and oriented x3. Breathing status is better. No complaints of chest pain or shortness of breath. Bilateral lower extremities are Osmany wrapped. Heart rate is better controlled. Continued on metoprolol. Digoxin was added. Follow-up renal function. Torsemide is on hold. Cardiology is following. 04/07/2022 Patient is resting in the bed comfortably. No complaints of chest pain or shortness of breath. Repeat chest x-ray yesterday showed chronic changes with no evidence for acute pulmonary disease. Blood cultures grew Bacillus species. Not anthresis. Heart rate is better controlled. Currently on metoprolol and digoxin. Due to worsening renal function nephrology will be consulted. 04/08/2022 Patient is resting in bed. Awake alert and oriented x3. No complaints of chest pain or shortness of breath patient did have decreased urine output yesterday and was given IV fluid boluse.. Renal function improved with creatinine level 2.1 today. Patient complains of hiccups this morning. Patient denied any nausea or vomiting abdominal pain or diarrhea. Continued on antibiotics and off ceftriaxone azithromycin. Nephrology and cardiology on board. 04/09/2022 Patient is seen this am and at the bedside. Patient is being followed by nephrology and cardiology. Kidney functions improving and blood pressure is improved as well. Continued on 4L via NC and denies any worsening shortness of breath. Patient is afebrile and denies chest pain or palpitations. Patient is tolerating diet with no reports of nausea or vomiting noted. PT following recommending ecf and case management is following and awaiting insurance auth. 04/10/2022 Patient is seen in follow up this morning and at the bedside and has concerns of patient going to ecf as he is extremely weak and also more fatigued today. Patient is lethargic, but arousable. Falls asleep easily. No Narcotics or BLADE CHANGER agents given. Patient did receive a norco a few days ago. Patient with lower extremity weakness and swelling noted. Patient is continued on 4L via NC and is afebrile. Will get a chest xray, urinalysis, dig level, and creatinine kinase. Will also obtain ct brain. 04/11/2022 Patient seen and evaluated and follow-up this morning with and daughter at the bedside and patient continues to be lethargic although is a more awake today than yesterday although continues to fatigue easily. Patient had CT of the brain yesterday which showed no acute intracranial process with the pituitary fossa fullness which could represent an underlying pituitary lesion such as a macroadenoma and consider MRI with nonspecific white matter changes likely secon carmela to chronic small vessel ischemic disease. Will consult neurology and appreciate input and recommendations. Patient also had a chest x-ray which showed persistent cardiomegaly and exam was rotated with some prominence of the right hilar region suspect underlying aortic ectasia with tracheal deviation recommending CT. CT abdomen chest will be ordered and pending. Will also obtain urine culture and start the patient on Zosyn, DuoNeb treatments. Patient is afebrile denies chest pain or worsening shortness of breath. Patient continues to be extremely weak and recommend PT/OT evaluation daily. 04/12/2022 Patient is seen in follow up this morning with family members at the bedside and have requesting a hospice consult. Patient had a swallow evaluation and failed and is currently NPO. Patient unable to take oral medications and is continued on IV antibiotics for possible aspiration pneumonia. Patient is extremely confused and restless at times and moaning in pain. Will add prn IV pain medications. Lengthy discussion had with the family as is not sure if she wants hospice at this time. Palliative care suggested and is being discussed with multiple family members at this time. Patient is afebrile. No reports of chest pain. Neurology also following. Overall prognosis is extremely guarded at this time. Review of systems: unable to obtain due to increased confusion All medications have been reviewed PHYSICAL EXAMINATION: Patient is lying in the bed asleep, lethargic,confused, restless at times, weak.. HEENT: Normocephalic. Neck is supple. Pupils reactive. Nostrils clear. Oral cavity is moist. Neck reveals no JVD, carotid bruits, or thyromegaly. CHEST EXAMINATION: Trachea is central. Symmetrical expansion. Bibasilar diminished sounds and some crackles noted. CARDIAC: S1, S2 muffled ABDOMEN: Soft. non-tender, obese, Bowel sounds normal. No organomegaly. No abdominal bruits. Extremities: 2+ bilateral pedal edema. No clubbing or cyanosis Neurologically asleep although arousable, lethargic, confused, unable to completely assess, diffusely weak Skin: No rash or skin lesions. Musculoskeletal: No joint swelling or deformity. restless movements noted Assessment: Acute hypoxic respiratory failure secondary to pneumonia and CHF Paroxysmal atrial fibrillation with rapid ventricular rate. currently rate controlled Possible pituitary lesion as noted on CT Bilateral pneumonia. Likely community-acquired sepsis secondary to pneumonia mild Acute CHF likely precipitated by rapid ventricular rate. EF 35%. Bilateral chronic lower extremity swelling. Acute kidney injury. Likely prerenal. Obesity with BMI 39.5 COPD, acute exacerbation GERD Hypertension DVT prophylaxis No code Plan: Recommend to continue with current medications and management with cardiology and nephrology following. Neurology also following Recommend IV zosyn to continue for now Recommend DuoNeb treatments and daughter at the bedside with hospice consult requested per family and suggesting possible palliative at an [facility] and if no improvement, then consider possible hospice as feels he is not ready for hospice. Will have multiple family to discuss options and make a decision. Will add prn IV pain medications and ativan prn as needed as patient is yelling out and moaning in pain. Currently NPO as patient failed swallow assessment with speech therapy Case management following as well. Due to multiple complex medical issues, overall prognosis is extremely guarded The impression and plan of care has been dictated by Rasheeda Hernandez, Nurse Practitioner as directed. Dr. Awais MD I have performed a history and examination and MDM of this patient, discussed the same with the dictator, and agree with the dictator's assessment and plan as written ,documented as a scribe. Based on total visit time, I have performed more than 50% of the visit. Objective - Vital Signs Vital signs: Vital Signs Temp 97.6 F 04/12/22 08:36 Pulse 100 04/12/22 08:36 Resp 18 04/12/22 08:36 BP 137/89 04/12/22 08:36 Pulse Ox 99 04/12/22 03:51 FiO2 Intake & Output 04/11/22 04/12/22 04/12/22 18:59 06:59 18:59 Intake Total 180 Output Total 1000 700 Balance -820 -700 Weight 95.5 kg Intake: Oral 180 Output: Urine 1000 700 Other: Voiding Method Indwelling Catheter Indwelling Catheter - Labs CBC & Chem 7: 04/12/22 07:56 04/12/22 07:56 Labs: Abnormal Lab Results - Last 24 Hours (Table) 04/11/22 04/11/22 04/11/22 Range/Units 08:59 08:59 16:53 RBC 3.75 L (4.30-5.90) m/uL Hgb 11.4 L (13.0-17.5) gm/dL Hct 37.3 L (39.0-53.0) % MCV (80.0-100.0) fL MCHC 30.6 L (31.0-37.0) g/dL Lymphocytes # 0.6 L (1.0-4.8) k/uL ESR (0-15) mm/hr BUN 42 H (9-20) mg/dL Glucose 127 H (74-99) mg/dL Calcium 8.3 L (8.4-10.2) mg/dL AST 65 H (17-59) U/L ALT 88 H (4-49) U/L C-Reactive Protein 19.7 H (<1.0) mg/dL Total Protein 6.1 L (6.3-8.2) g/dL Albumin 2.6 L (3.5-5.0) g/dL 04/11/22 04/12/22 04/12/22 Range/Units 16:53 07:56 07:56 RBC 3.98 L (4.30-5.90) m/uL Hgb 12.6 L (13.0-17.5) gm/dL Hct (39.0-53.0) % MCV 100.1 H (80.0-100.0) fL MCHC (31.0-37.0) g/dL Lymphocytes # 0.5 L (1.0-4.8) k/uL ESR 103 H (0-15) mm/hr BUN 39 H (9-20) mg/dL Glucose 116 H (74-99) mg/dL Calcium (8.4-10.2) mg/dL AST (17-59) U/L ALT (4-49) U/L C-Reactive Protein (<1.0) mg/dL Total Protein (6.3-8.2) g/dL Albumin (3.5-5.0) g/dL Microbiology - Last 24 Hours (Table) 04/11/22 15:27 Urine Culture - Preliminary Urine,Catheterized
[2022-04-13] MEDS: PIPERACILLIN-TAZOBACTAM 3.375 GM in SODIUM CHLORIDE 0.9% 100 ML IVPB SCH ×2 (00:36→09:15)
[2022-04-13] MEDS: MORPHINE SULFATE 4 MG/ML SYRINGE IVP PRN ×3 (00:43→09:07)
[2022-04-13 04:37] VITALS: BP 149/79
[2022-04-13] MEDS: IPRATROPIUM-ALBUTEROL 3 ML NEB INHALATION SCH (08:05)
[2022-04-13 09:03] VITALS: PULSE 120; RESP 22
[2022-04-13] MEDS: LORazepam 2 MG/ML INJ IV PRN (09:03)
[2022-04-13] MEDS: ENOXAPARIN 100 MG/ML SYRINGE SQ SCH (09:14)
[2022-04-13] MEDS: DIGOXIN 125 MCG TAB PO SCH (09:14)
[2022-04-13] MEDS: TAMSULOSIN 0.4 MG CAP.ER.24H PO SCH (09:14)
[2022-04-13] MEDS: HYDROPHILIC CREAM 180 GM TUBE TOPICAL SCH (09:15)
[2022-04-13] MEDS: METOPROLOL SUCCINATE (ER) 100 MG TAB.ER.24H PO SCH (09:15)
[2022-04-13] MEDS: POTASSIUM CITRATE 10 MEQ TABLET.ER PO SCH (09:15)
[2022-04-13] MEDS: LOSARTAN 25 MG TAB PO SCH (09:15)
--- NOTE | 2022-04-13 09:49 | P.PN ---
Subjective Progress Note Date: 04/12/22 Patient was seen for a follow-up. Patient's was also present today. Apparently patient's has canceled all testing, and are considering hospice. Patient has too many medical issues going on. MRI, EEG canceled. Objective - Vital Signs Vital signs: Vital Signs Temp 97.6 F 04/12/22 08:36 Pulse 92 04/12/22 12:03 Resp 18 04/12/22 08:36 BP 137/89 04/12/22 08:36 Pulse Ox 99 04/12/22 03:51 FiO2 Intake & Output 04/11/22 04/12/22 04/12/22 18:59 06:59 18:59 Intake Total 180 0 Output Total 1000 700 Balance -820 -700 0 Weight 95.5 kg Intake: Oral 180 0 Output: Urine 1000 700 Other: Voiding Method Indwelling Catheter Indwelling Catheter Indwelling Catheter # Voids 0 # Bowel Movements 0 - Exam Patient laying, appears comfortable, but somewhat obtunded. Detailed testing deferred. - Labs CBC & Chem 7: 04/12/22 07:56 04/12/22 07:56 Labs: Abnormal Lab Results - Last 24 Hours (Table) 04/11/22 04/11/22 04/12/22 Range/Units 16:53 16:53 07:56 RBC 3.98 L (4.30-5.90) m/uL Hgb 12.6 L (13.0-17.5) gm/dL MCV 100.1 H (80.0-100.0) fL Lymphocytes # 0.5 L (1.0-4.8) k/uL ESR 103 H (0-15) mm/hr BUN (9-20) mg/dL Glucose (74-99) mg/dL C-Reactive Protein 19.7 H (<1.0) mg/dL 04/12/22 Range/Units 07:56 RBC (4.30-5.90) m/uL Hgb (13.0-17.5) gm/dL MCV (80.0-100.0) fL Lymphocytes # (1.0-4.8) k/uL ESR (0-15) mm/hr BUN 39 H (9-20) mg/dL Glucose 116 H (74-99) mg/dL C-Reactive Protein (<1.0) mg/dL Microbiology - Last 24 Hours (Table) 04/11/22 12:49 Blood Culture - Preliminary Blood No Growth after 24 hours 04/11/22 15:27 Urine Culture - Preliminary Urine,Catheterized Assessment and Plan Assessment: * Altered mental status, probably due to acute delirium/metabolic encephalopathy due to reasons mentioned below. 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 * Acute hypoxic respiratory failure secondary to pneumonia and CHF * Paroxysmal atrial fibrillation with rapid ventricular rate, now on anticoagulation * Bilateral pneumonia * Sepsis * CHF * Acute kidney injury * Obesity * COPD * Hypertension Plan: * Patient has a pituitary mass. We will perform MRI of the pituitary gland with and without contrast, rule out tumor. Also MRI will rule out any CVA. * Patient is on full dose anticoagulation with Lovenox for stroke prevention related to atrial fibrillation. * X-ray of the thoracic, cervical and lumbar spine showed no fractures. Only degenerative changes. * Consider bone scan for diffuse bone pain. * EEG rule out epileptiform activity * ESR 103, CRP 19.7, rheumatoid factor negative, uric acid 03.9, A1c 5.9, B12 644, B1, folate 12.50, B6, MMA and immune fixation electrophoresis Showed IgG Lamda monoclonal protein. Patient may have paraproteinemia. * Medical management as per IM and other specialties. * Patient undergoing hospice care. All tests were canceled by patient's . I had a prolonged discussion with her. * Neurology will sign off. Please reconsult if any concerns.
--- NOTE | 2022-04-13 11:14 | P.PN ---
Subjective Patient is seen for follow-up for acute kidney injury and top of chronic kidney disease. 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 Serum creatinine had peaked at 2.4 and has decreased now to 1.1 mg/dL. Patient is status post IV fluids. Blood pressure was low and patient is maintained on Cozaar which has been decreased Blood culture grew bacillus species There are plans for transfer to hospice today Objective - Vital Signs Vital signs: Vital Signs Temp 98.7 F 04/12/22 20:00 Pulse 100 04/13/22 08:19 Resp 22 04/13/22 08:00 BP 149/79 04/13/22 04:00 Pulse Ox 95 04/13/22 08:00 FiO2 Intake & Output 04/12/22 04/13/22 04/13/22 18:59 06:59 18:59 Intake Total 0 Output Total 900 Balance 0 -900 Intake: Oral 0 Output: Urine 900 Other: Voiding Method Indwelling Catheter Indwelling Catheter Indwelling Catheter # Voids 0 0 # Bowel Movements 0 - Exam Awake, comfortable, not in any acute distress Patient has been sleeping. He does not respond to verbal stimuli. Examination of the heart S1 and S2 Examination lungs bilateral breath sounds are heard Abdomen is soft nontender Examination of lower extremities shows 2+ edema bilaterally - Labs CBC & Chem 7: 04/12/22 07:56 04/12/22 07:56 Labs: Microbiology - Last 24 Hours (Table) 04/11/22 15:27 Urine Culture - Final Urine,Catheterized 04/11/22 12:49 Blood Culture - Preliminary Blood No Growth after 24 hours Assessment and Plan Assessment: 1. Acute kidney injury associated with volume depletion and prerenal state in the setting of use of angiotensin receptor blockers and sepsis. Status post IV fluids. Blood pressure is improved 2. 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 History of COPD 4. History of cardiomyopathy, ejection fraction 35% 5. History of nephrolithiasis 6. Bacteremia with blood culture growing bacillus species, 1 out of 2. Final culture after 144 hours shows no growth. Plan: Agree with plans for hospice care
--- NOTE | 2022-04-13 12:39 | P.DS ---
Providers Date of admission: 04/03/22 13:17 Expected date of discharge: 04/13/22 Attending physician: Warner Hilton Consults: 04/03/22 13:17 Consult Physician Routine Consulting Provider: Chemo Hernandez Consult Reason/Comments: Rapid atrial fibrillation Do you want consulting provider notified?: Yes 04/07/22 15:33 Consult Physician Routine Consulting Provider: Huber Estes Consult Reason/Comments: worsening kidney function Do you want consulting provider notified?: Yes, Notify in am 04/11/22 10:55 Consult Physician Urgent Consulting Provider: Toyin Russ Consult Reason/Comments: pituitary lesion Do you want consulting provider notified?: Yes Primary care physician: Rema Ramirez MD Hospital Course: Final diagnosis Acute hypoxic respiratory failure secondary to pneumonia and CHF Paroxysmal atrial fibrillation with rapid ventricular rate. currently rate controlled Possible pituitary lesion as noted on CT Pericardial effusion as noted on CT of the chest Bilateral pneumonia. Likely community-acquired with high probability of aspiration pneumonia sepsis secondary to pneumonia mild Acute CHF likely precipitated by rapid ventricular rate. EF 35%. Bilateral chronic lower extremity swelling. Acute kidney injury. Likely prerenal. Obesity with BMI 39.5 COPD, acute exacerbation GERD Hypertension DVT prophylaxis No code Discharge disposition Patient is being transferred to inpatient hospice [facility] hospice services and made GIP comfort measures only per family. Total time taken is greater than 35 minutes. Hospital course This is a 86-year-old male who was recently admitted with increased weakness, atrial fibrillation with RVR, pneumonia and generalized weakness. Patient had had prolonged hospitalization and clinically deteriorating and becoming more lethargic and unresponsive. Patient had multiple consultations following and maintained on IV antibiotics with no real improvement. Patient began being unable to swallow or take medications and failed swallow eval and family had requested hospice and bladder hospice met with the family with plans of possible hospice house today. Patient rapidly declining and actively dying in [facility] was consulted and is being made inpatient hospice with comfort measures only with multiple family members at the bedside. Questions and concerns were answered to the best of our ability. Patient is unresponsive and in acute respiratory distress and moaning in pain. Plan is for comfort measures only and patient will be initiated on morphine drip. Please refer to previous dictations for further HPI. The impression and plan of care has been dictated by Rasheeda Hernandez, Nurse Practitioner as directed. Dr. Awais MD I have performed a history and examination and MDM of this patient, discussed the same with the dictator, and agree with the dictator's assessment and plan as written ,documented as a scribe. Based on total visit time, I have performed more than 50% of the visit. Patient Condition at Discharge: Fair Plan - Discharge Summary Discharge Rx Participant: No New Discharge Prescriptions: No Action Potassium Citrate [Potassium Citrate ER] 10 meq PO DAILY Ergocalciferol [Vitamin D2 (1250 Mcg = 59677 Iu)] 1,250 mcg PO Q30D Metoprolol Succinate (ER) [Toprol Xl] 75 mg PO DAILY Losartan Potassium 100 mg PO DAILY Amoxic-Pot Clav 875-125Mg [Augmentin 875-125] 1 tab PO Q12HR Rivaroxaban [Xarelto] 20 mg PO W/SUPPER Torsemide [Demadex] 20 mg PO DAILY Discharge Medication List Amoxic-Pot Clav 875-125Mg [Augmentin 875-125] 1 tab PO Q12HR 04/03/22 [History] Ergocalciferol [Vitamin D2 (1250 Mcg = 33307 Iu)] 1,250 mcg PO Q30D 04/03/22 [History] Losartan Potassium 100 mg PO DAILY 04/03/22 [History] Metoprolol Succinate (ER) [Toprol Xl] 75 mg PO DAILY 04/03/22 [History] Potassium Citrate [Potassium Citrate ER] 10 meq PO DAILY 04/03/22 [History] Rivaroxaban [Xarelto] 20 mg PO W/SUPPER 04/03/22 [History] Torsemide [Demadex] 20 mg PO DAILY 04/03/22 [History] Follow up Appointment(s)/Referral(s): Rema Ramirez MD [Primary Care Provider] - 1-2 days Located Within [facility] [NON-STAFF] - Discharge Disposition: DISCH TO [facility]
[2022-04-14 12:40] LABS: Methylmalonic Acid 0.36 umol/L (<0.40)
--- NOTE | 2022-04-16 08:53 | CDI ---
Documentation Clarification Form Date: 04/16/2022 08:52:00 AM From: Jie Barrett Admit Date: 04/03/2022 01:17:00 PM Patient Name: Duke Pena Visit Number: [id number] Discharge Date: 04/13/2022 10:35:00 AM ATTENTION: The Clinical Documentation Specialists (CDI) and [facility] Coding Staff appreciate your assistance in clarifying documentation. Please respond to the clarification below the line at the bottom and electronically sign. The CDI & [facility] Coding staff will review the response and follow-up if needed. Please note: Queries are made part of the Legal Health Record. If you have any questions, please contact the author of this message via ITS. Dr. Luis Miguel Lucero, Your patient has the documented diagnosis of mild acute CHF in ED Note, numerous PNs and DS. Additional information regarding the [type, acuity] of CHF is requested. History/Risk Factors: HTN w heart failure & CKD III, cardiomyopathy, chronic venous hypertension w ulcer and inflammation of bilateral lower extremity, PAF. COPD VS/Pulse OX: T 100.7, P 130, R 20-22, BP 183/116, O2 SAT 90 BNP: 2700 11/07 Echocardiogram Results: ejection fraction 35% with mild aortic regurgitation, mild mitral regurgitation, mild tricuspid regurgitation 04/03 Chest X Ray: Low lung volumes with a generalized hazy appearance which could represent atelectasis, pneumonia or pulmonary edema. Treatment: Digoxin IV, Demadex PO In your professional opinion, can you please clarify the [acuity and type] of CHF if known? [ ] Acute Systolic Heart Failure (reduced EF) [ X ] Chronic Systolic Heart Failure (reduced EF) [ ] Acute on Chronic Systolic Heart Failure (reduced EF) [ ] Acute Diastolic Heart Failure (preserved EF) [ ] Chronic Diastolic Heart Failure (preserved EF) [ ] Acute on Chronic Diastolic Heart Failure (preserved EF) [ ] Acute Systolic & Diastolic Heart Failure [ ] Chronic Systolic & Diastolic Heart Failure [ ] Acute on Chronic Heart Failure Systolic & Diastolic Heart Failure [ ] Other, please specify [ ] Unable to determine MTDD
[2022-04-19] MEDS ORDERED: ERGOCALCIFEROL 1,250 MCG (50,000 IU) CAPSULE PO SCH (09:00)
== END 2022-04-13 10:35 | disposition hospice, inpatient (51) | DRG 871 ==
LOC: EC 09:38 → 3SCARD 13:17
PROVIDERS: ADMIT Internal Medicine; ATTEND Internal Medicine
DX: A41.9 Sepsis, unspecified organism (principal); G93.41 Metabolic encephalopathy; J96.01 Acute respiratory failure with hypoxia; J69.0 Pneumonitis due to inhalation of food and vomit; N17.9 Acute kidney failure, unspecified; I13.0 Hypertensive heart and chronic kidney disease with heart failure and stage 1 through stage 4 chronic kidney disease, or unspecified chronic kidney disease; I42.9 Cardiomyopathy, unspecified; I87.333 Chronic venous hypertension (idiopathic) with ulcer and inflammation of bilateral lower extremity; L97.211 Non-pressure chronic ulcer of right calf limited to breakdown of skin; L97.221 Non-pressure chronic ulcer of left calf limited to breakdown of skin; G96.08 Other cranial cerebrospinal fluid leak; I50.22 Chronic systolic (congestive) heart failure; N18.30 Chronic kidney disease, stage 3 unspecified; I48.0 Paroxysmal atrial fibrillation; J44.9 Chronic obstructive pulmonary disease, unspecified; E23.7 Disorder of pituitary gland, unspecified; Z51.5 Encounter for palliative care; Z20.822 Contact with and (suspected) exposure to COVID-19; Z28.310 Unvaccinated for COVID-19; Z68.39 Body mass index [BMI] 39.0-39.9, adult; E66.9 Obesity, unspecified; E78.5 Hyperlipidemia, unspecified; E86.9 Volume depletion, unspecified; I89.0 Lymphedema, not elsewhere classified; I87.2 Venous insufficiency (chronic) (peripheral); R80.9 Proteinuria, unspecified; Z79.01 Long term (current) use of anticoagulants; Z79.899 Other long term (current) drug therapy; Z87.891 Personal history of nicotine dependence; Z87.442 Personal history of urinary calculi; K21.9 Gastro-esophageal reflux disease without esophagitis; Z71.3 Dietary counseling and surveillance; W18.30XA Fall on same level, unspecified, initial encounter; Y92.009 Unspecified place in unspecified non-institutional (private) residence as the place of occurrence of the external cause
CPT/HCPCS: 36415; 70450; 71045; 71046; 71250; 72040; 72070; 72100; 74176; 80048; 80053; 80162; 80185; 81001; 82550; 82570; 82607; 82746; 83036; 83605; 83690; 83735; 83880; 83921; 84145; 84156; 84207; 84425; 84439; 84443; 84484; 84550; 85025; 85610; 85652; 86140; 86334; 86431; 87040; 87086; 87502; 87635; 93005; 94640; 94760; 96365; 96366; 96368; 96375; 99291